=== PATIENT | female | born 1995 | race Caucasian/White ===

== ENCOUNTER 2017-02-28 22:27 | Emergency (ER) | payer MEDICAID, OTHER ==
--- NOTE | 2017-02-28 22:38 | ED Physician Documentation ---
PD HPI URI - Stated complaint Stated Complaint: SORE THROAT - History obtained from History obtained from: Patient - History of Present Illness Timing - onset: How many days ago (5) Timing duration: Days (5) Timing details: Gradual onset, Still present Associated symptoms: Fever, Chills, Sore throat, Swollen nodes, Productive cough (she feels it is more spitting up from the throat and not coughing from bronchial, but getting yellow/green with touches of blood.). 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: None Psych: Depression Musculoskeletal: None Derm: None - Past Surgical History Past Surgical History: No - Present Medications Home Medications: Ambulatory Orders Medication Instructions Recorded Confirmed Cephalexin [Keflex] 500 mg PO QID #24 capsule 02/28/17 Dexamethasone [Decadron] 4 mg PO DAILY #5 tablet 02/28/17 Naproxen 375 mg PO BID #15 tablet 02/28/17 - Allergies Allergies/Adverse Reactions: Allergies Allergy/AdvReac Type Severity Reaction Status Date / Time No Known Drug Allergies Allergy Verified 02/28/17 22:38 - Social History Does the pt smoke?: No Smoking Status: Never smoker Does the pt drink ETOH?: No Does the pt have substance abuse?: No - Immunizations Immunizations are current?: Yes - POLST Patient has POLST: No PD ED PE NORMAL - Vitals Vital signs reviewed: Yes - General General: Alert and oriented X 3, Well developed/nourished, Other (appears uncomfortable with swallowing. ) - HEENT HEENT: No: Pharynx benign (tonsils enlarged with redness and spotty exudate; no peritonsillar swelling nor uvular deviation. ) - Neck Neck: Supple, no meningeal sign, Other (anterior adenopathy noted both sides, tender. ) - Cardiac Cardiac: RRR, No murmur - Respiratory Respiratory: Clear bilaterally - Abdomen Abdomen: Soft, Non tender, No organomegaly Results - Vitals Vitals: Oxygen O2 Source Room air - Labs Labs: Microbiology 02/28/17 22:58 Group A Strep Throat Culture - Final Throat MIXED OROPHARYNGEAL CLOTILDE PRESENT. NO BETA STREP PRESENT IN CULTURE. Laboratory Tests 02/28/17 22:58 Group A Strep Rapid Negative PD MEDICAL DECISION MAKING - ED course Complexity details: considered differential (high clinical suspicion for bacterial so will empirically treat pending culture results. ), d/w patient Departure - Departure Disposition: Home, Self Care Clinical Impression: Acute pharyngitis Qualifiers: Pharyngitis/tonsillitis etiology: unspecified etiology Qualified Code(s): J02.9 - Acute pharyngitis, unspecified Condition: Stable Record reviewed to determine appropriate education?: Yes Instructions: ED Strep Pharyngitis Poss Prescriptions: Cephalexin [Keflex] 500 mg PO QID #24 capsule Dexamethasone [Decadron] 4 mg PO DAILY #5 tablet Naproxen 375 mg PO BID #15 tablet Comments: Drink lots of fluids. Off work tomorrow. Cephalexin 4 times a day for likely strep infection. The culture will result in 2-3 days. Decadron steroid daily for the next several days. Add Tylenol or naproxen as needed for pains. Short- term you can use the hydrocodone prescription we gave you from here. Recheck if not improved over the next several days. Forms: Activity restrictions Discharge Date/Time: 02/28/17 23:43
[2017-02-28] MEDS ORDERED: cephALEXin 250 MG CAPSULE PO STA (22:54)
[2017-02-28] MEDS ORDERED: HYDROcod/ACET 5/325 Prepack 6 PO STA (22:54)
[2017-02-28] MEDS ORDERED: DEXAMETHASONE 10 MG/ML VIAL PO STA (22:54)
[2017-02-28] MEDS ORDERED: ACETAMINOPHEN 325 MG TABLET PO STA (22:54)
[2017-02-28 23:49] VITALS: BP 104/70
== END 2017-02-28 23:43 | disposition home or self-care (01) ==
LOC: ED 22:27
DX: J02.9 Acute pharyngitis, unspecified (principal)
CPT/HCPCS: 87070; 87430; 99283; A9270

== ENCOUNTER 2017-04-21 17:36 | Emergency (ER) | payer MEDICAID ==
[2017-04-21 17:48] VITALS: BP 115/61
--- NOTE | 2017-04-21 17:58 | ED Physician Documentation ---
PD HPI URI - Stated complaint Stated Complaint: CHILLS/SOA/COUGH/SORE THROAT - Chief complaint Chief Complaint: Heent - History obtained from History obtained from: Patient - History of Present Illness Timing - onset: Other (Mild cough for a month which became much worse associated with chills and shortness of breath 2 days ago. Mild sore throat. No measured fevers.) Review of Systems Constitutional: reports: Fatigue. 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 HEENT: None Psych: Depression Musculoskeletal: None Derm: None - Past Surgical History Past Surgical History: No - Present Medications Home Medications: Ambulatory Orders Medication Instructions Recorded Confirmed Azithromycin [Zithromax] 250 mg PO DAILY #4 tablet 04/21/17 guaiFENesin/CODEINE [Robitussin AC] 5 - 10 ml PO Q6H PRN #120 ml 04/21/17 - Allergies Allergies/Adverse Reactions: Allergies Allergy/AdvReac Type Severity Reaction Status Date / Time No Known Drug Allergies Allergy Verified 02/28/17 22:38 - Social History Does the pt smoke?: No Smoking Status: Never smoker Does the pt drink ETOH?: No Does the pt have substance abuse?: No - Immunizations Immunizations are current?: Yes - POLST Patient has POLST: No PD ED PE NORMAL - Vitals Vital signs reviewed: Yes - General General: Alert and oriented X 3, No acute distress - HEENT HEENT: Pharynx benign - Neck Neck: Supple, no meningeal sign, No bony TTP - Cardiac Cardiac: RRR, No murmur - Respiratory Respiratory: No respiratory distress, Other (Diminished R base) - Abdomen Abdomen: Non tender - Derm Derm: Normal color, Warm and dry - Neuro Neuro: Alert and oriented X 3, Normal speech - Psych Psych: Normal mood Results - Vitals Vitals: Vital Signs - 24 hr 04/21/17 17:46 Temperature 37.3 C Heart Rate 88 Respiratory 20 Rate Blood Pressure 115/61 O2 Saturation 99 Oxygen O2 Source Room air - Rads (name of study) 2v chest Radiology: EMP read contemporaneously (RUL pNA) Departure - Departure Disposition: 01 Home, Self Care Clinical Impression: Pneumonia Qualifiers: Pneumonia type: due to unspecified organism Laterality: right Lung location: upper lobe of lung Qualified Code(s): J18.1 - Lobar pneumonia, unspecified organism Condition: Good Record reviewed to determine appropriate education?: Yes Instructions: Pneumonia Dc Prescriptions: Azithromycin [Zithromax] 250 mg PO DAILY #4 tablet guaiFENesin/CODEINE [Robitussin AC] 5 - 10 ml PO Q6H PRN #120 ml PRN Reason: Cough Comments: Call your doctor to arrange a follow-up appointment, make the next available appointment. In the interim, return anytime if worse or if new symptoms develop. Forms: Activity restrictions
--- NOTE | 2017-04-21 18:37 | XRAY Report ---
EXAM: CHEST RADIOGRAPHY EXAM DATE: 04/21/2017 06:16 PM. CLINICAL HISTORY: Cough. COMPARISON: None. TECHNIQUE: 2 views. FINDINGS: Lungs/Pleura: Focal consolidation in the right upper lobe silhouetting the fissure. The lungs are oth erwise clear. No pleural effusion. No pneumothorax. Mediastinum: Heart and mediastinal contours are unremarkable. Other: None. IMPRESSION: Findings most suggestive of right upper lobe pneumonia. [facility] Referring Provider Line: [phone] SITE ID: [id number]
--- NOTE | 2017-04-21 18:37 | XRAY Preliminary Report ---
Exam: XR CHEST 2 VIEW X-RAY IMPRESSION: Findings most suggestive of right upper lobe pneumonia. [facility] SITE ID: [id number]
[2017-04-21] MEDS ORDERED: AZITHROMYCIN 250 MG TABLET PO STA (18:42)
== END 2017-04-21 18:51 | disposition home or self-care (01) ==
LOC: ED 17:36
DX: J18.1 Lobar pneumonia, unspecified organism (principal)
CPT/HCPCS: 71046; 99283; 99284; A9270

== ENCOUNTER 2017-04-25 15:23 | Emergency (ER) | payer MEDICAID ==
[2017-04-25 15:39] VITALS: BP 106/52
[2017-04-25] MEDS ORDERED: ALBUTEROL NEB 2.5 MG/3 ML INH STA (16:31)
--- NOTE | 2017-04-25 16:39 | ED Physician Documentation ---
History of Present Illness - Stated complaint Stated Complaint: SOA,WHEEZING,COUGH,CHEST/LUNG PX - Chief complaint Chief Complaint: Resp - History obtained from History obtained from: Patient - History of Present Illness Timing: How many weeks ago (1) Pain level max: 0 Pain level now: 0 - Additonal information Additional information: Patient is a 22-year-old female who presents to the emergency department with what appear to be upper respiratory infection symptoms for the past week and a half. Was seen here a few days ago and diagnosed with right upper lobe pneumonia on chest x-ray. She states that she has now finished antibiotics, but is still not feeling well. Tried returning to work, but was very fatigued. She is concerned that the pneumonia may be worsening and that she may need more antibiotics. Patient is not , breast-feeding or trying to become . Symptoms are better with rest and worse with exertion. No recent fevers. 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 Psych: Depression Musculoskeletal: None Derm: None - Past Surgical History Past Surgical History: No - Present Medications Home Medications: Ambulatory Orders Medication Instructions Recorded Confirmed Azithromycin [Zithromax] 250 mg PO DAILY #4 tablet 04/21/17 guaiFENesin/CODEINE [Robitussin AC] 5 - 10 ml PO Q6H PRN #120 ml 04/21/17 Albuterol Sulf [Ventolin Hfa 1 - 2 puffs INH Q4HR PRN #1 inhaler 04/25/17 Inhaler] Doxycycline Monohydrate 100 mg PO BID #20 tablet 04/25/17 - Allergies Allergies/Adverse Reactions: Allergies Allergy/AdvReac Type Severity Reaction Status Date / Time No Known Drug Allergies Allergy Verified 04/25/17 15:39 - Social History Does the pt smoke?: No Smoking Status: Never smoker Does the pt drink ETOH?: No Does the pt have substance abuse?: No - Immunizations Immunizations are current?: Yes - POLST Patient has POLST: No PD ED PE NORMAL - Vitals Vital signs reviewed: Yes - General General: Alert and oriented X 3, No acute distress, Well developed/nourished - HEENT HEENT: PERRL, Ears normal, Moist mucous membranes, Pharynx benign - Neck Neck: Supple, no meningeal sign - Cardiac Cardiac: RRR, Strong equal pulses - Respiratory Respiratory: No respiratory distress, Other (Diminished breath sounds bilaterally) - Abdomen Abdomen: Soft, Non tender, Non distended - Derm Derm: Warm and dry, No rash - Extremities Extremities: No edema - Neuro Neuro: Alert and oriented X 3 - Psych Psych: Normal mood, Normal affect Results - Vitals Vitals: Vital Signs - 24 hr 04/25/17 04/25/17 15:37 16:47 Temperature 36.5 C Heart Rate 59 L 84 Respiratory 16 18 Rate Blood Pressure 106/52 L O2 Saturation 99 Oxygen O2 Source Room air - Rads (name of study) Chest x-ray Radiology: Prelim report reviewed, EMP read contemporaneously, See rad report ( Right upper lobe patchy density has decreased in size since 04/21/2017 consistent with resolving pneumonia. ) PD MEDICAL DECISION MAKING - ED course Complexity details: reviewed results, re-evaluated patient, considered differential, d/w patient, d/w family ED course: Patient is a 22-year-old female who presents to the emergency department with what appears to be resolving pneumonia. She feels better after nebulizer treatment and lungs are clear to auscultation bilaterally with increased aeration. Will prescribe an albuterol inhaler for home. We will also extend her antibiotic course as she still has pneumonia on chest x-ray and is still not feeling well. Will have her follow-up with her PCP for repeat evaluation in a few days. Patient counseled regarding signs and symptoms for which I believe and urgent re-evaluation would be necessary. Patient with good understanding of and agreement to plan and is comfortable going home at this time This document was made in part using voice recognition software. While efforts are made to proofread this document, sound alike and grammatical errors may occur. Departure - Departure Disposition: 01 Home, Self Care Clinical Impression: Pneumonia Qualifiers: Pneumonia type: due to unspecified organism Laterality: right Lung location: upper lobe of lung Qualified Code(s): J18.1 - Lobar pneumonia, unspecified organism Condition: Good Instructions: ED Pneumonia Adult Follow-Up: your,doctor in 1 week [Other] Prescriptions: Albuterol Sulf [Ventolin Hfa Inhaler] 1 - 2 puffs INH Q4HR PRN #1 inhaler PRN Reason: Shortness Of Air/Wheezing Doxycycline Monohydrate 100 mg PO BID #20 tablet Comments: Take all antibiotics until gone. Return if you worsen. This should continue to improve. Forms: Activity restrictions Discharge Date/Time: 04/25/17 17:32
--- NOTE | 2017-04-25 17:19 | XRAY Preliminary Report ---
Exam: XR CHEST 2 VIEW X-RAY IMPRESSION: Right upper lobe patchy density has decreased in size since 04/21/2017 consistent with re solving pneumonia. [facility] SITE ID: [id number]
--- NOTE | 2017-04-25 17:20 | XRAY Report ---
EXAM: CHEST RADIOGRAPHY EXAM DATE: 04/25/2017 05:14 PM. CLINICAL HISTORY: Cough, recent pneumonia. COMPARISON: 04/21/2017. TECHNIQUE: 2 views. FINDINGS: Lungs/Pleura: There is a mild patchy right upper lobe density. This density has decreased since prior exam. The left lung is clear. No pleural effusion or pneumothorax. Mediastinum: Heart and mediastinal contours are unremarkable. Other: None. IMPRESSION: Right upper lobe patchy density has decreased in size since 04/21/2017 consistent with re solving pneumonia. [facility] Referring Provider Line: [phone] SITE ID: [id number]
== END 2017-04-25 17:32 | disposition home or self-care (01) ==
LOC: ED 15:23
DX: J18.1 Lobar pneumonia, unspecified organism (principal)
CPT/HCPCS: 71046; 94640; 94664; 99281; 99284

== ENCOUNTER 2017-05-11 11:37 | Emergency (ER) | payer MEDICAID ==
--- NOTE | 2017-05-11 12:42 | ED Physician Documentation ---
PD HPI URI - Stated complaint Stated Complaint: COUGH/EYES WATERING - Chief complaint Chief Complaint: General - History obtained from History obtained from: Patient - History of Present Illness Timing - onset: How many days ago (2-3) Timing duration: Days (2-3) Timing details: Abrupt onset, Still present Associated symptoms: Chills, Nasal congestion, Rhinorrhea, Dry cough, NVD (some nausea with emesis once this morning; no diarrhea.). No: Fever Contributing factors: No: Sick contact, Travel, Immunocompromised Similar symptoms before: Has not had sx before Recently seen: Not recently seen Review of Systems Constitutional: reports: Chills, Myalgias. denies: Fever Nose: reports: Rhinorrhea / runny nose, Congestion, Sinus pressure / pain Throat: reports: Sore throat Respiratory: reports: Cough GI: reports: Nausea, Vomiting (once today). 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: None Psych: Depression Musculoskeletal: None Derm: None - Past Surgical History Past Surgical History: No - Present Medications Home Medications: Ambulatory Orders Medication Instructions Recorded Confirmed Azithromycin [Zithromax] 250 mg PO DAILY #4 tablet 04/21/17 guaiFENesin/CODEINE [Robitussin AC] 5 - 10 ml PO Q6H PRN #120 ml 04/21/17 Albuterol Sulf [Ventolin Hfa 1 - 2 puffs INH Q4HR PRN #1 inhaler 04/25/17 Inhaler] Doxycycline Monohydrate 100 mg PO BID #20 tablet 04/25/17 Benzonatate [Tessalon] 100 mg PO TID PRN #25 capsule 05/11/17 Cetirizine [ZyrTEC] 10 mg PO DAILY #20 tablet 05/11/17 Dexamethasone [Decadron] 4 mg PO DAILY #5 tablet 05/11/17 Fluticasone [Flonase] 1 sprays CHARISSA BID #1 bottle 05/11/17 - Allergies Allergies/Adverse Reactions: Allergies Allergy/AdvReac Type Severity Reaction Status Date / Time No Known Drug Allergies Allergy Verified 04/25/17 15:39 - Social History Does the pt smoke?: No Smoking Status: Never smoker Does the pt drink ETOH?: No Does the pt have substance abuse?: No - Immunizations Immunizations are current?: Yes - POLST Patient has POLST: No PD ED PE NORMAL - Vitals Vital signs reviewed: Yes - General General: Alert and oriented X 3, Well developed/nourished - HEENT HEENT: Ears normal, Pharynx benign - Neck Neck: Supple, no meningeal sign, No adenopathy - Cardiac Cardiac: RRR, No murmur - Respiratory Respiratory: Clear bilaterally - Abdomen Abdomen: Soft, Non tender - Derm Derm: Normal color, Warm and dry, No rash Results - Vitals Vitals: Oxygen O2 Source Room air PD MEDICAL DECISION MAKING - ED course Complexity details: considered differential, d/w patient Departure - Departure Disposition: 01 Home, Self Care Clinical Impression: Acute viral sinusitis Condition: Stable Record reviewed to determine appropriate education?: Yes Instructions: ED Sinusitis No Abx Prescriptions: Benzonatate [Tessalon] 100 mg PO TID PRN #25 capsule PRN Reason: Cough Cetirizine [ZyrTEC] 10 mg PO DAILY #20 tablet Dexamethasone [Decadron] 4 mg PO DAILY #5 tablet Fluticasone [Flonase] 1 sprays CHARISSA BID #1 bottle Comments: Since you are just finishing your antibiotic, would be unlikely that you have a bacterial sinus infection. More likely viral and will treat the irritation and inflammation of it with steroid orally and nasally as well as a antihistamine tablet. He can use Tessalon if needed for the cough and the steroid should help with the cough as well. Recheck if not improving over the next few days. Discharge Date/Time: 05/11/17 13:11
[2017-05-11] MEDS ORDERED: BENZONATATE 100 MG CAPSULE PO STA (12:58)
[2017-05-11] MEDS ORDERED: DEXAMETHASONE 10 MG/ML VIAL PO STA (12:58)
[2017-05-11] MEDS ORDERED: CETIRIZINE 10 MG TABLET PO STA (12:58)
[2017-05-11] MEDS ORDERED: CHERRY SYRUP 10 ML UDC PO ONE (13:15)
[2017-05-11 13:16] VITALS: BP 120/63
== END 2017-05-11 13:11 | disposition home or self-care (01) ==
LOC: ED 11:37
DX: J01.90 Acute sinusitis, unspecified (principal); B97.89 Other viral agents as the cause of diseases classified elsewhere
CPT/HCPCS: 99283; A9270

== ENCOUNTER 2017-05-17 09:26 | Emergency (ER) | payer MEDICAID ==
--- NOTE | 2017-05-17 12:27 | ED Physician Documentation ---
PD HPI URI - Stated complaint Stated Complaint: PAIN WITH BREATHING - Chief complaint Chief Complaint: Resp - History obtained from History obtained from: Patient - History of Present Illness Timing - onset: How many weeks ago (3) Timing duration: Weeks (3 weeks of cough and pain with cough/breathing, still some productive sputum. Has been seen twice with Rx abx, inhaler, steroids, and Tessalon. Still not better though no fevers the past week or so.) Timing details: Gradual onset, Still present Associated symptoms: Nasal congestion, Sore throat, Productive cough, Chest pain. No: Fever, Ear pain, Dyspnea, NVD Contributing factors: No: Sick contact, Travel, Immunocompromised, COPD / asthma Similar symptoms before: Diagnosis (URI and bronchtiis) Recently seen: Emergency Dept (twice in past 3 weeks) Review of Systems Constitutional: reports: Myalgias. denies: Fever Nose: reports: Congestion Throat: reports: Sore throat Cardiac: reports: Chest pain / pressure. denies: Palpitations, Pedal edema, Calf pain Respiratory: reports: Cough. 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 Psych: Depression Musculoskeletal: None Derm: None - Past Surgical History Past Surgical History: No - Present Medications Home Medications: Ambulatory Orders Medication Instructions Recorded Confirmed Azithromycin [Zithromax] 250 mg PO DAILY #4 tablet 04/21/17 guaiFENesin/CODEINE [Robitussin AC] 5 - 10 ml PO Q6H PRN #120 ml 04/21/17 Albuterol Sulf [Ventolin Hfa 1 - 2 puffs INH Q4HR PRN #1 inhaler 04/25/17 Inhaler] Doxycycline Monohydrate 100 mg PO BID #20 tablet 04/25/17 Benzonatate [Tessalon] 100 mg PO TID PRN #25 capsule 05/11/17 Cetirizine [ZyrTEC] 10 mg PO DAILY #20 tablet 05/11/17 Dexamethasone [Decadron] 4 mg PO DAILY #5 tablet 05/11/17 Fluticasone [Flonase] 1 sprays CHARISSA BID #1 bottle 05/11/17 Cephalexin [Keflex] 500 mg PO TID #21 capsule 05/17/17 Dexamethasone [Decadron] 4 mg PO DAILY #7 tablet 05/17/17 Tramadol HCl 50 mg PO Q6H PRN #25 tablet 05/17/17 - Allergies Allergies/Adverse Reactions: Allergies Allergy/AdvReac Type Severity Reaction Status Date / Time No Known Drug Allergies Allergy Verified 04/25/17 15:39 - Social History Does the pt smoke?: No Smoking Status: Never smoker Does the pt drink ETOH?: No Does the pt have substance abuse?: No - Immunizations Immunizations are current?: Yes - POLST Patient has POLST: No PD ED PE NORMAL - Vitals Vital signs reviewed: Yes - General General: Alert and oriented X 3, No acute distress, Well developed/nourished - HEENT HEENT: Ears normal, Moist mucous membranes, Pharynx benign - Neck Neck: Supple, no meningeal sign, No adenopathy - Cardiac Cardiac: RRR, No murmur - Respiratory Respiratory: Clear bilaterally - Abdomen Abdomen: Soft, Non tender - Derm Derm: Normal color, Warm and dry - Extremities Extremities: No tenderness to palpate, Normal ROM s pain, No edema, No calf tenderness / cord - Neuro Neuro: Alert and oriented X 3, No motor deficit, Normal speech Results - Vitals Vitals: Oxygen O2 Source Room air - Rads (name of study) chest Radiology: Prelim report reviewed, EMP read contemporaneously (no acute changes) PD MEDICAL DECISION MAKING - ED course Complexity details: reviewed results, considered differential, d/w patient Departure - Departure Disposition: 01 Home, Self Care Clinical Impression: Persistent cough for 3 weeks or longer, Pleuritic chest pain Condition: Stable Record reviewed to determine appropriate education?: Yes Instructions: ED Upper Resp Infec Abx Tx Follow-Up: [facility] [Provider Group] [facility] [Provider Group] Prescriptions: Cephalexin [Keflex] 500 mg PO TID #21 capsule Dexamethasone [Decadron] 4 mg PO DAILY #7 tablet Tramadol HCl 50 mg PO Q6H PRN #25 tablet PRN Reason: Pain Comments: Your chest x-ray appears good. Presumably the residual infection is still causing the cough and some inflammation around the lung. Continue the Decadron steroid for another 5-7 days. Will try a different antibiotic cephalexin 3 times a day for a week. Continue the Tessalon if needed for cough. Add tramadol if needed for pain. Recheck if still not better in the next week or so. Discharge Date/Time: 05/17/17 13:24
[2017-05-17] MEDS ORDERED: cephALEXin 250 MG CAPSULE PO STA (12:41)
[2017-05-17] MEDS ORDERED: HYDROcod/ACETAM 5/325 MG TABLET PO STA (12:41)
--- NOTE | 2017-05-17 13:13 | XRAY Report ---
EXAM: CHEST RADIOGRAPHY EXAM DATE: 05/17/2017 01:02 PM. CLINICAL HISTORY: Cough and right chest pain for weeks. COMPARISON: None. TECHNIQUE: 2 views. FINDINGS: Lungs/Pleura: No focal opacities evident. No pleural effusion. No pneumothorax. Normal volumes. Mediastinum: Heart and mediastinal contours are unremarkable. Other: None. IMPRESSION: Negative chest. [facility] Referring Provider Line: [phone] SITE ID: [id number]
[2017-05-17 13:25] VITALS: BP 122/65
== END 2017-05-17 13:24 | disposition home or self-care (01) ==
LOC: ED 09:26
DX: R05 Cough (principal); R07.81 Pleurodynia
CPT/HCPCS: 71046; 99283; A9270

== ENCOUNTER 2017-09-05 04:01 | Emergency (ER) | payer MEDICAID ==
--- NOTE | 2017-09-05 04:34 | ED Physician Documentation ---
PD HPI SKIN - Stated complaint Stated Complaint: L FOOT PAIN - Chief complaint Chief Complaint: Wound - History obtained from History obtained from: Patient - History of Present Illness Timing - onset: How many days ago (2-3) Timing - duration: Days Timing - details: Gradual onset Pain level now: 3 Location: LLE Quality / character: Itchy, Burning, Discolored, Raised Associated symptoms: No: Fever, Joint pain Contributing factors: Unknown Recently seen: Not recently seen - Additional information Additional information: patient complains of 2 to 3 days of redness and itching, burning discomfort on her left lower extremity. She believes this is due to a spider bite, although she did not see a spider nor have a sudden onset of her symptoms. 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 09/05/17 Sulfamethox/Trimeth 800/160 1 each PO BID #14 tablet 09/05/17 [Bactrim Ds 800/160] - Allergies Allergies/Adverse Reactions: Allergies Allergy/AdvReac Type Severity Reaction Status Date / Time No Known Drug Allergies Allergy Verified 09/05/17 04:07 - Social History Does the pt smoke?: No Smoking Status: Never smoker Does the pt drink ETOH?: No Does the pt have substance abuse?: No - Immunizations Immunizations are current?: Yes - POLST Patient has POLST: No PD ED PE NORMAL - Vitals Vital signs reviewed: Yes - General General: Alert and oriented X 3, No acute distress, Well developed/nourished - Extremities Extremities: No edema PD ED PE EXPANDED - Extremities Extremities: Other (1cm diameter confluent erythema with central clear vesicle. no fluctuance or discharge, mild tenderness) Results - Vitals Vitals: Vital Signs - 24 hr 09/05/17 09/05/17 04:06 04:57 Temperature 36.6 C Heart Rate 79 72 Respiratory 18 16 Rate Blood Pressure 129/64 125/74 O2 Saturation 100 99 Oxygen O2 Source Room air PD MEDICAL DECISION MAKING - ED course Complexity details: considered differential, d/w patient - Sepsis Event Vital Signs: Vital Signs - 24 hr 09/05/17 09/05/17 04:06 04:57 Temperature 36.6 C Heart Rate 79 72 Respiratory 18 16 Rate Blood Pressure 129/64 125/74 O2 Saturation 100 99 Oxygen O2 Source Room air Departure - Departure Disposition: 01 Home, Self Care Clinical Impression: Cellulitis Qualifiers: Site of cellulitis: extremity Site of cellulitis of extremity: lower extremity Laterality: left Qualified Code(s): L03.116 - Cellulitis of left lower limb Condition: Good Instructions: ED Infec Skin Cellulitis Prescriptions: Mupirocin Calcium [Bactroban] 1 film TP TID #1 cream..g. Sulfamethox/Trimeth 800/160 [Bactrim Ds 800/160] 1 each PO BID #14 tablet Comments: The infection looks small enough that the topical antibiotic (mupirocin) should work. Use it three times per day for 1 week. However, if the area is getting worse (larger area affected, increased swelling, increased pain), then take the oral antibiotic as prescribed (but continue the topical antibiotic, as well). Discharge Date/Time: 09/05/17 04:57
[2017-09-05] MEDS ORDERED: MUPIROCIN 2% OINT 1 GM TOP STA (04:44)
[2017-09-05 04:57] VITALS: BP 125/74
== END 2017-09-05 04:57 | disposition home or self-care (01) ==
LOC: ED 04:01
DX: L03.116 Cellulitis of left lower limb (principal)
CPT/HCPCS: 99283; A9270

== ENCOUNTER 2017-10-01 18:36 | Emergency (ER) | payer MEDICAID ==
[2017-10-01] MEDS ORDERED: NAPROXEN 250 MG TABLET PO STA (21:26)
--- NOTE | 2017-10-01 22:05 | XRAY Report ---
Reason: pain Procedure Date: 10/01/2017 Accession Number: [id number] / [id number] Procedure: XR - Foot 3 View RT CPT Code: FULL RESULT: EXAM: RIGHT FOOT RADIOGRAPHY EXAM DATE: 10/01/2017 09:53 PM. CLINICAL HISTORY: Pain at the first metatarsophalangeal joint COMPARISON: None. TECHNIQUE: 3 views. FINDINGS: Bones: Normal. No fractures or bone lesions. 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 Soft Tissues: Normal. No soft tissue swelling. IMPRESSION: Mild degenerative changes. No evidence of fracture. RADIA
--- NOTE | 2017-10-01 22:26 | ED Physician Documentation ---
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 09/05/17 Sulfamethox/Trimeth 800/160 1 each PO BID #14 tablet 09/05/17 [Bactrim Ds 800/160] Naproxen [Naprosyn] 500 mg PO BID PRN 30 Days #30 10/01/17 tablet - Allergies Allergies/Adverse Reactions: Allergies Allergy/AdvReac Type Severity Reaction Status Date / Time No Known Drug Allergies Allergy Verified 10/01/17 18:44 - Social History Does the pt smoke?: No Smoking Status: Never smoker Does the pt drink ETOH?: No Does the pt have substance abuse?: Yes Substance Use and Type: Marijuana - Immunizations Immunizations are current?: No Immunizations: Other immun current - POLST Patient has POLST: No Results - Vitals Vitals: Vital Signs - 24 hr 10/01/17 18:41 Temperature 36.7 C Heart Rate 88 Respiratory 18 Rate Blood Pressure 108/65 O2 Saturation 96 Oxygen O2 Source Room air PD MEDICAL DECISION MAKING - Sepsis Event Vital Signs: Vital Signs - 24 hr 10/01/17 18:41 Temperature 36.7 C Heart Rate 88 Respiratory 18 Rate Blood Pressure 108/65 O2 Saturation 96 Oxygen O2 Source Room air Departure - Departure Disposition: 01 Home, Self Care Clinical Impression: Foot pain Qualifiers: Laterality: unspecified laterality Qualified Code(s): M79.673 - Pain in unspecified foot Condition: Good Follow-Up: [facility] [Provider Group] - Within 1 week Prescriptions: Naproxen [Naprosyn] 500 mg PO BID PRN 30 Days #30 tablet PRN Reason: Pain Comments: Please follow-up with primary care for ongoing management. Please return to the emergency department for worsening symptoms or any concerns Forms: Activity restrictions
[2017-10-01 22:34] VITALS: BP 108/63
--- NOTE | 2017-10-01 22:36 | ED Physician Documentation ---
History of Present Illness - Stated complaint Stated Complaint: RT FOOT/LOW BACK PX - Chief complaint Chief Complaint: Ext Problem - Additonal information Additional information: 22-year-old female presents the emergency department with chronic foot pain from a bunion for the past several years. The patient reports ongoing pain. The patient has not attempted any [id number] management. No new injuries. No fevers, chills or swelling or calf pain. Review of Systems Constitutional: denies: Fever, Chills Cardiac: denies: Chest pain / pressure Respiratory: denies: Cough Musculoskeletal: reports: Extremity pain. 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 09/05/17 Sulfamethox/Trimeth 800/160 1 each PO BID #14 tablet 09/05/17 [Bactrim Ds 800/160] Naproxen [Naprosyn] 500 mg PO BID PRN 30 Days #30 10/01/17 tablet - Allergies Allergies/Adverse Reactions: Allergies Allergy/AdvReac Type Severity Reaction Status Date / Time No Known Drug Allergies Allergy Verified 10/01/17 18:44 - Social History Does the pt smoke?: No Smoking Status: Never smoker Does the pt drink ETOH?: No Does the pt have substance abuse?: Yes Substance Use and Type: Marijuana - Immunizations Immunizations are current?: No Immunizations: Other immun current - POLST Patient has POLST: No PD ED PE NORMAL - General General: Alert and oriented X 3, No acute distress - HEENT HEENT: Atraumatic, PERRL, EOMI, Ears normal - Respiratory Respiratory: No respiratory distress - Derm Derm: Normal color, Warm and dry - Extremities Extremities: Other (The patient has full active range of motion of the hips, knees, ankles and feet. There is no obvious deformity to the right foot. The year is no swelling of the foot. The patient has a normal pulse and brisk cap refill. There is no evidence of acute infectious etiology, vascular etiology) Results - Vitals Vitals: Vital Signs - 24 hr 10/01/17 18:41 Temperature 36.7 C Heart Rate 88 Respiratory 18 Rate Blood Pressure 108/65 O2 Saturation 96 Oxygen O2 Source Room air - Rads (name of study) X-ray foot Radiology: Final report received PD MEDICAL DECISION MAKING - ED course ED course: I discussed the findings with the patient, I advised follow-up with primary care for ongoing management. The patient understands and agrees. I discussed warning signs and recommended returning to the emergency department for worsening or any concerns. - Sepsis Event Vital Signs: Vital Signs - 24 hr 10/01/17 18:41 Temperature 36.7 C Heart Rate 88 Respiratory 18 Rate Blood Pressure 108/65 O2 Saturation 96 Oxygen O2 Source Room air Departure - Departure Disposition: 01 Home, Self Care Clinical Impression: Foot pain Qualifiers: Laterality: unspecified laterality Qualified Code(s): M79.673 - Pain in unspecified foot Condition: Good Follow-Up: [facility] [Provider Group] - Within 1 week Prescriptions: Naproxen [Naprosyn] 500 mg PO BID PRN 30 Days #30 tablet PRN Reason: Pain Comments: Please follow-up with primary care for ongoing management. Please return to the emergency department for worsening symptoms or any concerns Forms: Activity restrictions
== END 2017-10-01 22:35 | disposition home or self-care (01) ==
LOC: ED 18:36
DX: M79.671 Pain in right foot (principal)
CPT/HCPCS: 73630; 99283; A9270

== ENCOUNTER 2017-11-23 13:51 | Emergency (ER) | payer MEDICAID ==
[2017-11-23 14:08] VITALS: BP 136/82
--- NOTE | 2017-11-23 14:32 | XRAY Report ---
Reason: injury Procedure Date: 11/23/2017 Accession Number: [id number] / [id number] Procedure: XR - Hand 3 View RT CPT Code: FULL RESULT: EXAM: RIGHT HAND RADIOGRAPHY EXAM DATE: 11/23/2017 02:16 PM. CLINICAL HISTORY: Injury. Persistent third and fifth digit pain COMPARISON: None. TECHNIQUE: 3 views. FINDINGS: Bones: No fractures or bone lesions. Joints: No subluxations. Soft Tissues: No soft tissue swelling. IMPRESSION: Negative 3 view right hand radiography. RADIA
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
== END 2017-11-23 14:42 | disposition home or self-care (01) ==
LOC: ED 13:51
DX: S60.221A Contusion of right hand, initial encounter (principal); W22.09XA Striking against other stationary object, initial encounter
CPT/HCPCS: 99282

== ENCOUNTER 2018-02-11 17:52 | Emergency (ER) | payer MEDICAID ==
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
[2018-02-11 18:10] VITALS: BP 139/78
== END 2018-02-11 18:58 | disposition home or self-care (01) ==
LOC: ED 17:52
DX: J06.9 Acute upper respiratory infection, unspecified (principal); R03.0 Elevated blood-pressure reading, without diagnosis of hypertension
CPT/HCPCS: 87070; 87275; 87276; 87430; 99283

== ENCOUNTER 2018-05-05 18:48 | Outpatient (CLI) | payer MEDICAID | END 2018-05-05 18:49 | disposition critical access hospital (66) | LOC: EMS 18:48 | PROVIDERS: ATTEND Surgery | DX: R11.2 Nausea with vomiting, unspecified (principal); R10.9 Unspecified abdominal pain; R19.7 Diarrhea, unspecified; R50.9 Fever, unspecified | CPT/HCPCS: A0425; A0427; A0999 ==

== ENCOUNTER 2018-05-05 19:12 | Emergency (ER) | payer MEDICAID ==
[2018-05-05 19:31] LABS: BILIRUBIN,URINE NEGATIVE (NEGATIVE); GLUCOSE, URINE (UA) NEGATIVE (NEGATIVE); KETONES,URINE (UA) >=80 mg/dL (NEGATIVE); LEUKOCYTE ESTERASE, URINE NEGATIVE (NEGATIVE); NITRITE,URINE NEGATIVE (NEGATIVE); OCCULT BLOOD,URINE NEGATIVE (NEGATIVE); PH,URINE 5.5 PH (5.0-7.5); PROTEIN,URINE NEGATIVE (NEGATIVE); UROBILINOGEN,URINE 0.2 (NORMAL) E.U./dL (NORMAL)
[2018-05-05 19:32] LABS: CLARITY,URINE CLEAR (CLEAR)
[2018-05-05 19:33] LABS: HCG UR QUAL NEGATIVE
[2018-05-05] MEDS ORDERED: SODIUM CHLORIDE 0.9% 1,000 ML IV ONE (20:01)
[2018-05-05] MEDS ORDERED: DICYCLOMINE 10 MG CAPSULE PO STA (20:02)
[2018-05-05] MEDS ORDERED: LOPERAMIDE 2 MG CAPSULE PO STA ×2 (20:02→21:00)
[2018-05-05] MEDS ORDERED: LACTATED RINGERS 1,000 ML IV STA (20:02)
[2018-05-05] MEDS ORDERED: METOCLOPRAMIDE 10 MG/2 ML VIAL IVP STA (20:02)
--- NOTE | 2018-05-05 20:03 | ED Physician Documentation ---
PD HPI NVD - Stated complaint Stated Complaint: N/V/D - Chief complaint Chief Complaint: Abd Pain - History obtained from History obtained from: Patient - History of Present Illness Timing - onset: Today (Previously healthy 23-year-old woman who became acutely nauseous today at 11 AM followed by vomiting and diarrhea, stomach cramps. She has chills but no fevers. No sick contacts or recent travel.) Review of Systems Constitutional: reports: Chills, Sweats. 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 09/05/17 Sulfamethox/Trimeth 800/160 1 each PO BID #14 tablet 09/05/17 [Bactrim Ds 800/160] RX: Naproxen [Naprosyn] 500 mg PO BID PRN 30 Days #30 10/01/17 tablet Guaifenesin/Pseudoephedrne HCl 1 each PO BID PRN #20 tab.er.12h 02/11/18 [Mucinex D ER 600-60 mg Tablet] Ibuprofen [Motrin] 800 mg PO Q8H PRN #30 tablet 02/11/18 Ondansetron Odt [Zofran] 4 mg TL Q6H PRN #10 tablet 05/05/18 - Allergies Allergies/Adverse Reactions: Allergies Allergy/AdvReac Type Severity Reaction Status Date / Time Penicillins Allergy Anaphylaxis Verified 05/05/18 19:15 cyclobenzaprine AdvReac Emesis Verified 05/05/18 19:15 [From Flexeril] hydrocodone [From Vicodin] AdvReac Emesis Verified 05/05/18 19:15 - Social History Does the pt smoke?: No Smoking Status: Never smoker Does the pt drink ETOH?: No Does the pt have substance abuse?: Yes - Immunizations Immunizations are current?: No Immunizations: Other immun current - POLST Patient has POLST: No PD ED PE NORMAL - Vitals Vital signs reviewed: Yes - General General: Alert and oriented X 3, No acute distress - HEENT HEENT: PERRL, Pharynx benign - Neck Neck: Supple, no meningeal sign, No bony TTP - Cardiac Cardiac: Other (Mild tachycardia) - Respiratory Respiratory: No respiratory distress, Clear bilaterally - Abdomen Abdomen: Normal bowel sounds, Soft, Non tender - Back Back: No CVA TTP, No spinal TTP - Derm Derm: Normal color, Warm and dry - Extremities Extremities: No edema, No calf tenderness / cord - Neuro Neuro: Alert and oriented X 3, Normal speech Results - Vitals Vitals: Vital Signs - 24 hr 05/05/18 05/05/18 05/05/18 19:15 19:20 21:22 Temperature 37.1 C 37.1 C 36.8 C Heart Rate 110 H 110 H 98 Respiratory 18 16 16 Rate Blood Pressure 103/62 103/62 106/64 O2 Saturation 100 100 100 Oxygen O2 Source Room air - Labs Labs: Laboratory Tests 05/05/18 05/05/18 19:27 20:16 Sodium 137 Potassium 3.9 Chloride 106 Carbon Dioxide 22 Anion Gap 9.0 BUN 11 Creatinine 0.6 Estimated GFR (MDRD) 124 Glucose 100 Calcium 8.3 L Total Bilirubin 1.3 H AST 18 ALT 16 Alkaline Phosphatase 40 L Total Protein 6.9 Albumin 4.1 Globulin 2.8 Albumin/Globulin Ratio 1.5 Lipase 25 Urine Color YELLOW Urine Clarity CLEAR Urine pH 5.5 Ur Specific [place] >=1.030 H Urine Protein NEGATIVE Urine Glucose (UA) NEGATIVE Urine Ketones >=80 H Urine Occult Blood NEGATIVE Urine Nitrite NEGATIVE Urine Bilirubin NEGATIVE Urine Urobilinogen 0.2 (NORMAL) Ur Leukocyte Esterase NEGATIVE Ur Microscopic Review NOT INDICATED Urine Culture Comments NOT INDICATED Urine HCG, Qual NEGATIVE PD MEDICAL DECISION MAKING - ED course ED course: 23-year-old woman with clinical syndrome very consistent with gastroenteritis. She is nontender. She took oral fluids well after the administration of Zofran and Reglan here and requested discharge. Departure - Departure Disposition: 01 Home, Self Care Clinical Impression: Gastroenteritis Condition: Good Record reviewed to determine appropriate education?: Yes Instructions: ED Gastroenteritis Viral Prescriptions: Ondansetron Odt [Zofran] 4 mg TL Q6H PRN #10 tablet PRN Reason: Nausea / Vomiting Comments: Return in 24 hours if not better, anytime if worse or new symptoms develop especially high fever Or pain in the right bottom of your abdomen. Forms: Activity restrictions Discharge Date/Time: 05/05/18 21:22
[2018-05-05 20:37] LABS: ALBUMIN 4.1 g/dL (3.2-5.5); ALBUMIN/GLOBULIN RATIO 1.5 (1.0-2.2); BILIRUBIN,TOTAL 1.3 mg/dL (0.2-1.0); CALCIUM 8.3 mg/dL (8.5-10.3); CREATININE 0.6 mg/dL (0.4-1.0); TOTAL PROTEIN 6.9 g/dL (6.7-8.2)
[2018-05-05] MEDS ORDERED: ONDANSETRON ODT 4 MG Prepack 2 TL PRN (21:00)
[2018-05-05 21:23] VITALS: BP 106/64
== END 2018-05-05 21:22 | disposition home or self-care (01) ==
LOC: EDUNIT# → ED 19:12
DX: K52.9 Noninfective gastroenteritis and colitis, unspecified (principal)
CPT/HCPCS: 36415; 80053; 81003; 81025; 83690; 96374; 99283; A9270; J2765; J7120; 81001; 87086

== ENCOUNTER 2018-11-27 11:35 | Emergency (ER) | payer MEDICAID ==
[2018-11-27 11:42] VITALS: BP 119/69
[2018-11-27] MEDS ORDERED: CHERRY SYRUP 10 ML UDC PO ONE (12:19)
[2018-11-27] MEDS ORDERED: DEXAMETHASONE 10 MG/ML VIAL PO STA (12:19)
[2018-11-27] MEDS ORDERED: ONDANSETRON ODT 4 MG TABLET TL STA (12:19)
--- NOTE | 2018-11-27 12:21 | ED Physician Documentation ---
PD HPI HEENT - Stated complaint Stated Complaint: SORE THROAT - Chief complaint Chief Complaint: Heent - History obtained from History obtained from: Patient - History of Present Illness Timing - onset: Yesterday (Sore throat since yesterday without runny nose or cough. She is had chills but no measured fevers. She vomited once but it is not clear if it was from trying to take DayQuil and a cough drop or from the illness itself. No possibility of .) Review of Systems Constitutional: reports: Chills, Fatigue. 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 HEENT: None Psych: Depression, Anxiety, ADD/ADHD Musculoskeletal: None Derm: None - Past Surgical History Past Surgical History: No - Present Medications Home Medications: Ambulatory Orders Medication Instructions Recorded Confirmed Ibuprofen [Motrin] 800 mg PO Q8H PRN #30 tablet 11/27/18 Ondansetron Odt [Zofran] 4 mg TL Q6H PRN #10 tablet 11/27/18 - Allergies Allergies/Adverse Reactions: Allergies Allergy/AdvReac Type Severity Reaction Status Date / Time Penicillins Allergy Anaphylaxis Verified 05/05/18 19:15 cyclobenzaprine AdvReac Emesis Verified 05/05/18 19:15 [From Flexeril] hydrocodone [From Vicodin] AdvReac Emesis Verified 11/27/18 11:42 - Social History Does the pt smoke?: No Smoking Status: Never smoker Does the pt drink ETOH?: No Does the pt have substance abuse?: Yes - Immunizations Immunizations are current?: No Immunizations: Other immun current - POLST Patient has POLST: No PD ED PE NORMAL - Vitals Vital signs reviewed: Yes - General General: Alert and oriented X 3, No acute distress - HEENT HEENT: Ears normal, Pharynx benign - Neck Neck: Supple, no meningeal sign - Cardiac Cardiac: RRR, No murmur - Respiratory Respiratory: No respiratory distress, Clear bilaterally - Abdomen Abdomen: Non tender - Derm Derm: No rash - Neuro Neuro: Alert and oriented X 3, Normal speech Results - Vitals Vitals: Vital Signs - 24 hr 11/27/18 11:40 Temperature 36.6 C Heart Rate 97 Respiratory 18 Rate Blood Pressure 119/69 O2 Saturation 100 Oxygen O2 Source Room air - Labs Labs: Laboratory Tests 11/27/18 11:45 Group A Strep Rapid Negative Departure - Departure Disposition: Home, Self Care Clinical Impression: Viral pharyngitis Condition: Good Record reviewed to determine appropriate education?: Yes Instructions: ED Pharyngitis Viral Report Pending Prescriptions: Ibuprofen [Motrin] 800 mg PO Q8H PRN #30 tablet PRN Reason: PAIN &/OR FEVER Ondansetron Odt [Zofran] 4 mg TL Q6H PRN #10 tablet PRN Reason: Nausea / Vomiting Comments: We will call if your throat culture becomes positive, return for new or worsening symptoms. Forms: Activity restrictions
== END 2018-11-27 12:34 | disposition home or self-care (01) ==
LOC: ED 11:35
DX: J02.8 Acute pharyngitis due to other specified organisms (principal)
CPT/HCPCS: 87070; 87430; 99283; A9270; Q0162

== ENCOUNTER 2019-03-25 20:50 | Emergency (ER) | payer MEDICAID ==
[2019-03-25 20:57] VITALS: BP 132/90
--- NOTE | 2019-03-25 21:02 | ED Physician Documentation ---
History of Present Illness - Stated complaint Stated Complaint: R HAND INJ - Chief complaint Chief Complaint: Trauma Ext - History obtained from History obtained from: Patient (the patient is a 24 y/o right hand dominant female who p/w a cc of right hand pain after she punched a wall. she denies any other complaints.) Review of Systems Ten Systems: 10 systems reviewed and negative Constitutional: reports: Reviewed and negative Eyes: reports: Reviewed and negative Ears: reports: Reviewed and negative Nose: reports: Reviewed and negative Throat: reports: Reviewed and negative Cardiac: reports: Reviewed and negative Respiratory: reports: Reviewed and negative GI: reports: Reviewed and negative : reports: Reviewed and negative Skin: reports: Reviewed and negative Musculoskeletal: reports: Other (right hand pain) Neurologic: reports: Reviewed and negative Psychiatric: reports: Reviewed and negative Endocrine: reports: Reviewed and negative Immunocompromised: reports: Reviewed and negative PD PAST MEDICAL HISTORY - Past Medical History Cardiovascular: None Respiratory: None Neuro: None Endocrine/Autoimmune: None GI: None 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 HEENT: None Psych: Depression, Anxiety, ADD/ADHD Musculoskeletal: None Derm: None - Past Surgical History Past Surgical History: No - Present Medications Home Medications: Ambulatory Orders Medication Instructions Recorded Confirmed Ibuprofen [Motrin] 800 mg PO Q8H PRN #30 tablet 11/27/18 Ondansetron Odt [Zofran] 4 mg TL Q6H PRN #10 tablet 11/27/18 - Allergies Allergies/Adverse Reactions: Allergies Allergy/AdvReac Type Severity Reaction Status Date / Time Penicillins Allergy Anaphylaxis Verified 03/25/19 20:53 cyclobenzaprine AdvReac Emesis Verified 03/25/19 20:53 [From Flexeril] - Social History Does the pt smoke?: No Smoking Status: Never smoker Does the pt drink ETOH?: No Does the pt have substance abuse?: Yes - Immunizations Immunizations are current?: No Immunizations: Other immun current - POLST Patient has POLST: No PD ED PE NORMAL - Vitals Vital signs reviewed: Yes - General General: Alert and oriented X 3, No acute distress - HEENT HEENT: Atraumatic, PERRL - Neck Neck: Supple, no meningeal sign - Cardiac Cardiac: RRR, Strong equal pulses - Respiratory Respiratory: No respiratory distress, Clear bilaterally - Abdomen Abdomen: Normal bowel sounds, Soft, Non tender, Non distended - Derm Derm: Normal color, Warm and dry, No rash - Extremities Extremities: No deformity, Other (tenderness to palpation on the right hand over the fourth mcp joint, no gross deformity, compartments are soft, radian/median/ulnar motor and sensory exam is intact, remnants cutter strength is 5/5, radial pulses 2+ and symettric. ) - Neuro Neuro: Alert and oriented X 3 - Psych Psych: Normal mood, Normal affect Results - Vitals Vitals: Vital Signs - 24 hr 03/25/19 20:53 Temperature 36.8 C Heart Rate 80 Respiratory 15 Rate Blood Pressure 132/90 H O2 Saturation 99 Oxygen O2 Source Room air PD MEDICAL DECISION MAKING - ED course Complexity details: other (right hand injury, will get radiograph to rule out fracture.) Departure - Departure Disposition: 01 Home, Self Care Clinical Impression: Injury of right hand Qualifiers: Encounter type: initial encounter Qualified Code(s): S69.91XA - Unspecified injury of right wrist, hand and finger(s), initial encounter Contusion of right hand Qualifiers: Encounter type: initial encounter Qualified Code(s): S60.221A - Contusion of right hand, initial encounter Condition: Good Instructions: ED Contusion Hand Ch Follow-Up: Chrsi Ngo MD [Primary Care Provider] - Tomorrow Comments: ice as needed and take tylenol as needed
--- NOTE | 2019-03-25 21:21 | XRAY Report ---
Reason: Trauma Procedure Date: 03/25/2019 Accession Number: [id number] / [id number] Procedure: XR - Hand 3 View RT CPT Code: Final Report FULL RESULT: EXAM: RIGHT HAND RADIOGRAPHY EXAM DATE: 03/25/2019 09:09 PM. CLINICAL HISTORY: Trauma. COMPARISON: HAND 3 VIEW RT 11/23/2017 2:16 PM. TECHNIQUE: 3 views. FINDINGS: Bones: Normal. No fractures or bone lesions. Joints: Normal. No subluxations. Soft Tissues: There is soft tissue swelling of the dorsal MCP joints. IMPRESSION: Soft tissue swelling without fracture. RADIA
== END 2019-03-25 21:51 | disposition home or self-care (01) ==
LOC: ED 20:50
DX: S69.91XA Unspecified injury of right wrist, hand and finger(s), initial encounter (principal); S60.221A Contusion of right hand, initial encounter; W22.01XA Walked into wall, initial encounter
CPT/HCPCS: 99282; 99283

== ENCOUNTER 2019-05-10 18:52 | Emergency (ER) | payer MEDICAID ==
[2019-05-10] MEDS ORDERED: TETANUS/DIPHTHERIA/PERTUSSIS 0.5 ML SYRINGE IM ONE (19:08)
[2019-05-10] MEDS ORDERED: BUFFERED LIDOCAINE 10 ML SYRINGE SUBQ STA (19:08)
--- NOTE | 2019-05-10 19:27 | ED Physician Documentation ---
PD HPI UPPER EXT INJURY - Stated complaint Stated Complaint: L INDEX FINGER LAC - Chief complaint Chief Complaint: Laceration - History obtained from History obtained from: Patient - Additonal information Additional information: Yared is a 24-year-old female is here today with a left index finger laceration. She states she was trying to cut a zip tie at home with a knife when she actually cut the dorsum of her finger. She has full range of motion of her finger. She does not recall her last tetanus shot. Upon arrival hemostasis was obtained by her prior pressure dressing. Patient has sensation. Has no further complaints at this time. 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 : None HEENT: None Psych: Depression, Anxiety, ADD/ADHD Musculoskeletal: None Derm: None - Past Surgical History Past Surgical History: No - Present Medications Home Medications: Ambulatory Orders Medication Instructions Recorded Confirmed Ibuprofen [Motrin] 800 mg PO Q8H PRN #30 tablet 11/27/18 Ondansetron Odt [Zofran] 4 mg TL Q6H PRN #10 tablet 11/27/18 - Allergies Allergies/Adverse Reactions: Allergies Allergy/AdvReac Type Severity Reaction Status Date / Time Penicillins Allergy Anaphylaxis Verified 03/25/19 20:53 cyclobenzaprine AdvReac Emesis Verified 03/25/19 20:53 [From Flexeril] - Social History Does the pt smoke?: No Smoking Status: Never smoker Does the pt drink ETOH?: No Does the pt have substance abuse?: Yes - Immunizations Immunizations are current?: No Immunizations: Other immun current - POLST Patient has POLST: No PD ED PE NORMAL - General General: Alert and oriented X 3, No acute distress, Well developed/nourished - HEENT HEENT: Atraumatic - Neck Neck: Supple, no meningeal sign - Cardiac Cardiac: RRR - Respiratory Respiratory: No respiratory distress - Derm Derm: Other (There is a 3 cm V-shaped laceration at the dorsum of the left index finger.) - Neuro Neuro: Alert and oriented X 3, No motor deficit - Psych Psych: Other (Patient is anxious and tearful. Speech is rapid and pressured.) Results - Vitals Vitals: Vital Signs - 24 hr 05/10/19 18:56 Temperature 36.6 C Heart Rate 69 Respiratory 16 Rate Blood Pressure 144/85 H O2 Saturation 97 Oxygen O2 Source Room air Procedures - Laceration (location) Finger left Wound type: Flap (Wound was infiltrated with 1% lidocaine. Wound was rinsed with normal saline. Wound was explored in a bloodless field. Wound was approximated with #650 supraoptic nylon sutures. Patient did cry and yell throughout the procedure. However her pain was also stimulated with other distractors additionally. Wound care was discussed in detail. Patient did not have any immediate complications. Return precautions were discussed.) PD MEDICAL DECISION MAKING - ED course Complexity details: other (Care was discussed. Patient agrees to continue wound care at home. Have her sutures removed in 10 to 14 days. Seek care sooner for signs and symptoms of infection as needed.) Departure - Departure Disposition: 01 Home, Self Care Clinical Impression: Finger laceration Condition: Stable Instructions: ED Laceration All Comments: Use Tylenol or Profen as needed for comfort. Continue wound care. Have your sutures removed in 10 to 14 days. Seek care sooner for any signs and symptoms of infection as needed.
[2019-05-10] MEDS ORDERED: BACITRACIN ZINC OINT 1 PACKET TOP STA (20:15)
[2019-05-10] MEDS ORDERED: IBUPROFEN 600 MG TABLET PO STA (20:15)
--- NOTE | 2019-05-10 20:22 | XRAY Report ---
Reason: laceration, r/o bone involvment Procedure Date: 05/10/2019 Accession Number: [id number] / [id number] Procedure: XR - Finger(s) LT CPT Code: Final Report FULL RESULT: EXAM: LEFT SECOND DIGIT RADIOGRAPHY EXAM DATE: 05/10/2019 07:47 PM. CLINICAL HISTORY: Laceration. Concern for bone involvement. COMPARISON: HAND 3 VIEW RT 03/25/2019 8:52 PM. TECHNIQUE: 3 views. FINDINGS: Bones: Normal. No fracture or bone lesion. Joints: Normal. No subluxations. Soft Tissues: Soft tissue injury noted distally. IMPRESSION: No bony abnormality. RADIA
[2019-05-10 21:00] VITALS: BP 122/78
== END 2019-05-10 20:59 | disposition home or self-care (01) ==
LOC: ED 18:52
DX: S61.211A Laceration without foreign body of left index finger without damage to nail, initial encounter (principal); W26.0XXA Contact with knife, initial encounter; Y93.89 Activity, other specified; Y99.0 Civilian activity done for income or pay
CPT/HCPCS: 12002; 73140; 90471; 90715; 99282; 99283; A9270

== ENCOUNTER 2019-05-24 11:51 | Emergency (ER) | payer OTHER, MEDICAID ==
[2019-05-24 12:02] VITALS: BP 112/69
--- NOTE | 2019-05-24 12:09 | ED Physician Documentation ---
History of Present Illness - Stated complaint Stated Complaint: SUTURE REMOVAL - Chief complaint Chief Complaint: General - History obtained from History obtained from: Patient Review of Systems Constitutional: denies: Fever, Chills, Myalgias, Fatigue, Weight Loss, Sweats, Reviewed and negative, Other Cardiac: denies: Chest pain / pressure, Palpitations, Pedal edema, Calf pain, Reviewed and negative, Other Respiratory: denies: Dyspnea, Cough, Hemoptysis, Wheezing, Reviewed and negative, Other Skin: reports: Laceration (s) (Left index finger, suture removal.) PD PAST MEDICAL HISTORY - Past Medical History Cardiovascular: None Respiratory: None Neuro: None Endocrine/Autoimmune: None GI: None 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 : None HEENT: None Psych: Depression, Anxiety, ADD/ADHD Musculoskeletal: None Derm: None - Past Surgical History Past Surgical History: No - Present Medications Home Medications: Ambulatory Orders Medication Instructions Recorded Confirmed Ibuprofen [Motrin] 800 mg PO Q8H PRN #30 tablet 11/27/18 Ondansetron Odt [Zofran] 4 mg TL Q6H PRN #10 tablet 11/27/18 - Allergies Allergies/Adverse Reactions: Allergies Allergy/AdvReac Type Severity Reaction Status Date / Time Penicillins Allergy Anaphylaxis Verified 03/25/19 20:53 cyclobenzaprine AdvReac Emesis Verified 03/25/19 20:53 [From Flexeril] - Social History Does the pt smoke?: No Smoking Status: Never smoker Does the pt drink ETOH?: No Does the pt have substance abuse?: Yes - Immunizations Immunizations are current?: No Immunizations: Other immun current - POLST Patient has POLST: No PD ED PE NORMAL - General General: Alert and oriented X 3 - HEENT HEENT: Atraumatic - Respiratory Respiratory: No respiratory distress - Derm Derm: Normal color, Warm and dry, Other Results - Vitals Vitals: Vital Signs - 24 hr 05/24/19 11:53 Temperature 37 C Heart Rate 84 Respiratory 16 Rate Blood Pressure 112/69 O2 Saturation 98 Oxygen O2 Source Room air Procedures - General procedure General procedure: 5 sutures to the left index finger removed without complications. Patient tolerated well. PD MEDICAL DECISION MAKING - ED course Complexity details: d/w patient Departure - Departure Disposition: 01 Home, Self Care Clinical Impression: Visit for suture removal Condition: Good Instructions: Wound Care Comments: Continue to monitor your laceration site for signs of infection. Follow-up with your primary care provider for any further care needed for the laceration.
== END 2019-05-24 12:26 | disposition home or self-care (01) ==
LOC: ED 11:51
DX: S61.211D Laceration without foreign body of left index finger without damage to nail, subsequent encounter (principal)
CPT/HCPCS: 99281; 99282

== ENCOUNTER 2020-01-07 15:03 | Emergency (ER) | payer MEDICAID, OTHER ==
[2020-01-07 15:58] LABS: HCG UR QUAL NEGATIVE
--- NOTE | 2020-01-07 16:41 | XRAY Report ---
PROCEDURE: Hip w/Pelvis 2-3V RT INDICATIONS: R hip pain after lifting. TECHNIQUE: AP pelvis with frog-leg lateral view of the right hip. COMPARISON: None. FINDINGS: Bones: No fractures or dislocations. Pelvic ring appears intact. No suspicious bony lesions. Soft tissues: The visualized bowel gas pattern is normal. No suspicious soft tissue calcifications. IMPRESSION: No acute osseous abnormality. Reviewed by: Jaime Foote DO on 01/07/2020 3:40 PM [facility] Approved by: Jaime Foote DO on 01/07/2020 3:40 PM [facility] Station ID: [id number]
[2020-01-07 16:45] VITALS: BP 112/58
--- NOTE | 2020-01-07 16:53 | ED Physician Documentation ---
History of Present Illness - Stated complaint Stated Complaint: HIP JOINT PX - Chief complaint Chief Complaint: Ext Problem - History obtained from History obtained from: Patient - History of Present Illness Timing: How many weeks ago (2) Pain level max: 5 Pain level now: 3 - Additonal information Additional information: 24-year-old female presents to the emergency department with a right hip pain. She states that it started after she was lifting a heavy object about a week ago. She states worse with movement and better with rest. No numbness or tingling. No back pain. Denies any possibility of . 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 HEENT: None Psych: Depression, Anxiety, ADD/ADHD Musculoskeletal: None Derm: None - Past Surgical History Past Surgical History: No - Present Medications Home Medications: Ambulatory Orders Medication Instructions Recorded Confirmed Ibuprofen [Motrin] 800 mg PO Q8H PRN #30 tablet 11/27/18 Ondansetron Odt [Zofran] 4 mg TL Q6H PRN #10 tablet 11/27/18 Ibuprofen [Motrin] 800 mg PO Q8H PRN #30 tablet 01/07/20 - Allergies Allergies/Adverse Reactions: Allergies Allergy/AdvReac Type Severity Reaction Status Date / Time Penicillins Allergy Anaphylaxis Verified 01/07/20 15:06 cyclobenzaprine AdvReac Emesis Verified 01/07/20 15:06 [From Flexeril] - Social History Does the pt smoke?: No Smoking Status: Never smoker Does the pt drink ETOH?: No Does the pt have substance abuse?: Yes Substance Use and Type: Marijuana - Immunizations Immunizations are current?: No Immunizations: Other immun current - POLST Patient has POLST: No PD ED PE NORMAL - Vitals Vital signs reviewed: Yes - General General: Alert and oriented X 3, No acute distress - HEENT HEENT: Moist mucous membranes - Neck Neck: Supple, no meningeal sign - Cardiac Cardiac: RRR - Respiratory Respiratory: No respiratory distress, Clear bilaterally - Back Back: No spinal TTP - Derm Derm: Warm and dry - Extremities Extremities: Other (R hip - Pain with internal and external rotation. No bony tenderness. No swelling. No ecchymosis. Neurovascular intact. Otherwise normal examination of the right lower extremity) - Neuro Neuro: Alert and oriented X 3 - Psych Psych: Normal mood, Normal affect Results - Vitals Vitals: Vital Signs - 24 hr 01/07/20 16:44 Temperature 36.3 C L Heart Rate 72 Respiratory 16 Rate Blood Pressure 112/58 L O2 Saturation 99 Oxygen O2 Source Room air - Labs Labs: Laboratory Tests 01/07/20 15:30 Ur Specific [place] 1.025 Urine HCG, Qual NEGATIVE - Rads (name of study) Right hip x-ray Radiology: Prelim report reviewed, EMP read contemporaneously, See rad report PD MEDICAL DECISION MAKING - ED course Complexity details: considered differential, d/w patient ED course: No acute abnormalities on x-ray. Ambulating well. Likely groin strain. We will continue supportive care and have her follow-up with her doctor. Patient counseled regarding signs and symptoms for which I believe and urgent re- evaluation would be necessary. Patient with good understanding of and agreement to plan and is comfortable going home at this time This document was made in part using voice recognition software. While efforts are made to proofread this document, sound alike and grammatical errors may occur. Departure - Departure Disposition: 01 Home, Self Care Clinical Impression: Strain of hip and thigh Qualifiers: Encounter type: initial encounter Laterality: right Qualified Code(s): S76.011A - Strain of muscle, fascia and tendon of right hip, initial encounter Condition: Good Instructions: ED Strain Groin Follow-Up: your,doctor in 1 week [Other] Prescriptions: Ibuprofen [Motrin] 800 mg PO Q8H PRN #30 tablet PRN Reason: PAIN &/OR FEVER Comments: Return if you worsen. Continue gentle stretching at home. Discharge Date/Time: 01/07/20 17:17
== END 2020-01-07 17:17 | disposition home or self-care (01) ==
LOC: ED 15:03
DX: S76.011A Strain of muscle, fascia and tendon of right hip, initial encounter (principal); X50.0XXA Overexertion from strenuous movement or load, initial encounter; Y93.89 Activity, other specified
CPT/HCPCS: 81025; 99283; 99284

== ENCOUNTER 2020-04-06 20:53 | Emergency (ER) | payer MEDICAID ==
[2020-04-06 21:00] VITALS: BP 122/71
[2020-04-06] MEDS ORDERED: predniSONE 20 MG TABLET PO STA (21:22)
--- NOTE | 2020-04-07 02:02 | ED Physician Documentation ---
History of Present Illness - Stated complaint Stated Complaint: ALLERGIC RXN - Chief complaint Chief Complaint: Allergic Rx - History obtained from History obtained from: Patient - History of Present Illness Timing: How many days ago (2) Pain level max: 0 Pain level now: 0 Improved by: nothing Worsened by: no apparent inciting nor exacerbating factors - Additonal information Additional information: c/o gradual onset of pruritic rash x 2 days without apparent inciting event. rash is BUE, chest, abdomen. No new soaps/detergents, medications, foods, or other apparent exposures. Denies h/o allergic reaction, denies h/o similar symptoms. She presents to ED at this time because this evening she has gradually developed sensation of her hands and tongue swelling. Denies dyspnea, wheezing Review of Systems Constitutional: denies: Fever Cardiac: reports: Reviewed and negative Respiratory: reports: Reviewed and negative GI: reports: Nausea. 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 HEENT: None Psych: Depression, Anxiety, ADD/ADHD Musculoskeletal: None Derm: None - Past Surgical History Past Surgical History: No - Present Medications Home Medications: Ambulatory Orders Medication Instructions Recorded Confirmed QUEtiapine [SEROquel] 600 mg PO QPM 04/06/20 04/06/20 lamoTRIgine [Lamictal] 300 mg PO 04/06/20 predniSONE [Deltasone] 40 mg PO DAILY 4 Days #8 tab 04/06/20 - Allergies Allergies/Adverse Reactions: Allergies Allergy/AdvReac Type Severity Reaction Status Date / Time Penicillins Allergy Mild Hives Verified 04/06/20 21:01 cyclobenzaprine AdvReac Emesis Verified 01/07/20 15:06 [From Flexeril] - Social History Does the pt smoke?: No Smoking Status: Never smoker Does the pt drink ETOH?: No Does the pt have substance abuse?: Yes - Immunizations Immunizations are current?: No Immunizations: Other immun current - POLST Patient has POLST: No PD ED PE NORMAL - Vitals Vital signs reviewed: Yes - General General: Alert and oriented X 3, No acute distress, Well developed/nourished - HEENT HEENT: Moist mucous membranes, Pharynx benign (no obvious perioral nor intraoral swelling ) - Neck Neck: Supple, no meningeal sign - Cardiac Cardiac: RRR, No murmur - Respiratory Respiratory: No respiratory distress, Clear bilaterally PD ED PE EXPANDED - Derm Derm: Rash (fine, faint rash on BUE with slightly more prominence on chest/abdomen; rash is fine erythematous papules without confluence) Results - Vitals Vitals: Oxygen O2 Source Room air PD MEDICAL DECISION MAKING - ED course Complexity details: considered differential, d/w patient ED course: subtle exanthem on chest and abdomen with minimal rash on BUE. Lungs CTA bilaterally and she is in NAD except for frequently scratching her hands due to pruritis. Although the findings on exam are subtle, it would be prudent to treat as allergic reaction given pruritic rash (albeit faint) combined with sensation of hand and tongue swelling. Given prednisone in ED with rx for same. She is driving home and thus advised to take benadryl once she is home per label instructions (she says she does have this at home). Departure - Departure Disposition: 01 Home, Self Care Clinical Impression: Allergic reaction Qualifiers: Encounter type: initial encounter Qualified Code(s): T78.40XA - Allergy, unspecified, initial encounter Condition: Good Instructions: ED Allergic Reaction General Other Follow-Up: [facility] [Provider Group] [facility] [Provider Group] Prescriptions: predniSONE [Deltasone] 40 mg PO DAILY 4 Days #8 tab Comments: In addition to the steroid (prednisone) that was prescribed tonight, continue the anithistmine (diphenhydramine (Benadryl)) every 6 hours as needed (as directed on package label). Discharge Date/Time: 04/06/20 21:29
== END 2020-04-06 21:29 | disposition home or self-care (01) ==
LOC: ED 20:53
DX: T78.40XA Allergy, unspecified, initial encounter (principal); X58.XXXA Exposure to other specified factors, initial encounter; L29.9 Pruritus, unspecified
CPT/HCPCS: 99282; 99284; J7512

== ENCOUNTER 2020-09-29 16:46 | Emergency (ER) | payer MEDICAID ==
[2020-09-29 16:52] VITALS: BP 132/59
[2020-09-29 17:06] LABS: BILIRUBIN,URINE NEGATIVE (NEGATIVE); GLUCOSE, URINE (UA) NEGATIVE (NEGATIVE); KETONES,URINE (UA) NEGATIVE (NEGATIVE); LEUKOCYTE ESTERASE, URINE SMALL (NEGATIVE); NITRITE,URINE NEGATIVE (NEGATIVE); OCCULT BLOOD,URINE TRACE-INTA (NEGATIVE); PROTEIN,URINE NEGATIVE (NEGATIVE); UROBILINOGEN,URINE 0.2 (NORMAL) E.U./dL (NORMAL)
[2020-09-29 17:09] LABS: CLARITY,URINE HAZY (CLEAR); HCG UR QUAL NEGATIVE
[2020-09-29 17:18] LABS: BACTERIA,URINE Moderate /HPF (None Seen); RBC,URINE 0-5 /HPF (0-5); SQUAMOUS EPITHELIAL CELL,UR NONE SEEN (<= Few)
[2020-09-29] MEDS ORDERED: cefTRIAXone 1 GM VIAL IM STA (17:26)
[2020-09-29] MEDS ORDERED: LIDOCAINE 1% 2 ML VIAL MC ONE (17:26)
--- NOTE | 2020-09-29 17:29 | ED Physician Documentation ---
PD HPI FEMALE - Stated complaint Stated Complaint: FEMALE - Chief complaint Chief Complaint: UTI - History obtained from History obtained from: Patient - History of Present Illness Timing - onset: How many days ago (4) Timing - duration: Days (4) Timing - details: Gradual onset Associated symptoms: Back pain, Dysuria, Urinary frequency, Other (vomiting) Contributing factors: No: Similar symptoms before: Diagnosis (UTI) Recently seen: Not recently seen - Additional information Additional information: 25-year-old female has developed some urinary urgency frequency and dysuria over the past 4 days she has not had a fever with this she does have some back pain and she did have some vomiting 2 days ago. Review of Systems Constitutional: denies: Fever Eyes: denies: Decreased vision Ears: denies: Ear pain Nose: denies: Congestion Throat: denies: Sore throat Cardiac: denies: Chest pain / pressure Respiratory: denies: Cough GI: reports: Nausea. denies: Abdominal Pain, Vomiting : reports: Dysuria, Frequency Skin: denies: Rash Musculoskeletal: reports: Back pain. 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 : None HEENT: None Psych: Depression, Anxiety, ADD/ADHD Musculoskeletal: None Derm: None - Past Surgical History Past Surgical History: No - Present Medications Home Medications: Ambulatory Orders Medication Instructions Recorded Confirmed QUEtiapine [SEROquel] 600 mg PO QPM 04/06/20 04/06/20 lamoTRIgine [Lamictal] 300 mg PO 04/06/20 Atomoxetine HCl [Strattera] 25 mg PO DAILY 09/29/20 09/29/20 [place] Carbonate [[place] 450 mg PO QPM 09/29/20 09/29/20 Carbonate ER] Sulfamethox/Trimeth 800/160 1 each PO BID #14 tablet 09/29/20 [Bactrim Ds] - Allergies Allergies/Adverse Reactions: Allergies Allergy/AdvReac Type Severity Reaction Status Date / Time Penicillins Allergy Mild Hives Verified 09/29/20 16:51 - Social History Does the pt smoke?: No Smoking Status: Never smoker Does the pt drink ETOH?: No Does the pt have substance abuse?: Yes - Immunizations Immunizations are current?: No Immunizations: Other immun current - POLST Patient has POLST: No PD ED PE NORMAL - Vitals Vital signs reviewed: Yes (Normal) - General General: Alert and oriented X 3, No acute distress, Well developed/nourished - HEENT HEENT: Atraumatic, PERRL, EOMI - Respiratory Respiratory: No respiratory distress - Abdomen Abdomen: Normal bowel sounds, Soft, Non distended, No organomegaly, Other (There is tenderness to bimanual palpation of the right kidney) - Back Back: No spinal TTP, Other (Tenderness to palpation of the right CVA area) - Derm Derm: Normal color, Warm and dry, No rash - Extremities Extremities: No deformity, No edema - Neuro Neuro: Alert and oriented X 3, 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, No motor deficit, No sensory deficit, Normal speech Eye Opening: Spontaneous Motor: Obeys Commands Verbal: Oriented GCS Score: 15 - Psych Psych: Normal mood, Normal affect Results - Vitals Vitals: Vital Signs - 24 hr 09/29/20 16:48 Temperature 37.2 C Heart Rate 75 Respiratory 16 Rate Blood Pressure 132/59 H O2 Saturation 99 Oxygen O2 Source Room air - Labs Labs: Laboratory Tests 09/29/20 16:55 Urine Color YELLOW Urine Clarity HAZY Urine pH 7.0 Ur Specific [place] 1.020 Urine Protein NEGATIVE Urine Glucose (UA) NEGATIVE Urine Ketones NEGATIVE Urine Occult Blood TRACE-INTA Urine Nitrite NEGATIVE Urine Bilirubin NEGATIVE Urine Urobilinogen 0.2 (NORMAL) Ur Leukocyte Esterase SMALL H Urine RBC 0-5 Urine WBC 11-25 H Ur Squamous Epith Cells NONE SEEN Urine Bacteria Moderate H Ur Microscopic Review INDICATED Urine Culture Comments INDICATED Urine HCG, Qual NEGATIVE PD MEDICAL DECISION MAKING - ED course Complexity details: considered differential, d/w patient ED course: 25-year-old female with urinary tract symptoms for 4 days has had some vomiting she has also had some pain in her back she has not had fever. She has tenderness to bimanual palpation of the right kidney. She is treated in the emergency department with Rocephin 1 g IM and we will place her on some sulfamethoxazole trimethoprim. Departure - Departure Disposition: 01 Home, Self Care Clinical Impression: Pyelonephritis Condition: Stable Instructions: ED Kidney Infec Female Follow-Up: [facility] [place] [Provider Group] Prescriptions: Sulfamethox/Trimeth 800/160 [Bactrim Ds] 1 each PO BID #14 tablet
== END 2020-09-29 17:59 | disposition home or self-care (01) ==
LOC: ED 16:46
DX: N12 Tubulo-interstitial nephritis, not specified as acute or chronic (principal); F32.9 Major depressive disorder, single episode, unspecified; F41.9 Anxiety disorder, unspecified; F90.9 Attention-deficit hyperactivity disorder, unspecified type; Z79.899 Other long term (current) drug therapy
CPT/HCPCS: 81001; 81003; 81025; 87077; 87086; 96372; 99283; 99284

== ENCOUNTER 2020-11-03 16:26 | Emergency (ER) | payer MEDICAID ==
[2020-11-03 16:51] VITALS: BP 119/70
[2020-11-03 17:17] LABS: RAPID STREP SCREEN Negative (Negative)
--- NOTE | 2020-11-03 17:33 | ED Physician Documentation ---
PD HPI HEENT - Stated complaint Stated Complaint: SWOLLEN NECK/HEADACHE/SORE THROAT/VOMIT - Chief complaint Chief Complaint: Heent - History obtained from History obtained from: Patient - Additional information Additional information: 25-year-old woman who is not immunized against Covid has had sore throat, body aches and chills since yesterday. Has minimal cough. No known exposure to Covid. 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 : None HEENT: None Psych: Depression, Anxiety, ADD/ADHD Musculoskeletal: None Derm: None - Past Surgical History Past Surgical History: No - Present Medications Home Medications: Ambulatory Orders Medication Instructions Recorded Confirmed QUEtiapine [SEROquel] 600 mg PO QPM 04/06/20 04/06/20 lamoTRIgine [Lamictal] 300 mg PO 04/06/20 Atomoxetine HCl [Strattera] 25 mg PO DAILY 09/29/20 09/29/20 [place] Carbonate [[place] 450 mg PO QPM 09/29/20 09/29/20 Carbonate ER] Sulfamethox/Trimeth 800/160 1 each PO BID #14 tablet 09/29/20 [Bactrim Ds] predniSONE [Deltasone] 60 mg PO DAILY 5 Days #15 tablet 11/03/20 - Allergies Allergies/Adverse Reactions: Allergies Allergy/AdvReac Type Severity Reaction Status Date / Time Penicillins Allergy Mild Hives Verified 11/03/20 16:51 - Social History Does the pt smoke?: No Smoking Status: Never smoker Does the pt drink ETOH?: No Does the pt have substance abuse?: Yes - Immunizations Immunizations are current?: No Immunizations: Other immun current - POLST Patient has POLST: No PD ED PE NORMAL - Vitals Vital signs reviewed: Yes - General General: Alert and oriented X 3, No acute distress - HEENT HEENT: Other (Exudative tonsillitis with moderate anterior cervical adenopathy) - Neck Neck: Supple, no meningeal sign, No bony TTP - Derm Derm: No rash - Neuro Neuro: Alert and oriented X 3, Normal speech Results - Vitals Vitals: Vital Signs - 24 hr 11/03/20 16:46 Temperature 36.1 C L Heart Rate 92 Respiratory 16 Rate Blood Pressure 119/70 O2 Saturation 98 Oxygen O2 Source Room air - Labs Labs: Laboratory Tests 11/03/20 16:52 Group A Strep Rapid Negative Departure - Departure Disposition: Home, Self Care Clinical Impression: Viral pharyngitis Condition: Good Record reviewed to determine appropriate education?: Yes Instructions: ED Pharyngitis Viral Report Pending Prescriptions: predniSONE [Deltasone] 60 mg PO DAILY 5 Days #15 tablet Comments: You have a Covid test pending. You need to self quarantine until the result is done and negative. Do not leave your house. Do not get near anybody. The results should be done in 48 to 72 hours. We will call with a positive result, the fastest way to get a negative result for confirmation though is to go to the hospital website at [email or web address], click on the my [facility] tab and sign up for the patient portal. If any friends or family get sick and would like to have a Covid test done, but do not have signs or symptoms that would necessitate being hospitalized, we encourage testing through our coronavirus swabbing station, call [phone] to schedule an appointment. Forms: Activity restrictions
== END 2020-11-03 17:35 | disposition home or self-care (01) ==
LOC: ED 16:26
DX: J02.8 Acute pharyngitis due to other specified organisms (principal); Z20.822 Contact with and (suspected) exposure to COVID-19
CPT/HCPCS: 87070; 87430; 99283

== ENCOUNTER 2020-12-21 19:09 | Emergency (ER) | payer MEDICAID ==
[2020-12-21] MEDS ORDERED: SODIUM CHLORIDE 0.9% 1,000 ML IV STA (19:21)
[2020-12-21] MEDS ORDERED: HYDROmorphone 1 MG/ML CARPUJECT IVP STA ×2 (19:21→21:17)
[2020-12-21] MEDS ORDERED: ONDANSETRON 4 MG/2 ML VIAL IVP STA (19:21)
--- NOTE | 2020-12-21 19:24 | ED Physician Documentation ---
History of Present Illness - Stated complaint Stated Complaint: LOWER RT ABDOMIN PX - Chief complaint Chief Complaint: Abd Pain - Additonal information Additional information: 25-year-old female presents emergency department with acute sudden onset right lower quadrant abdominal pain. There have been no fevers or vomiting. The pain occurred at rest out of nowhere. She does report that for the last 3 to 4 days she has been having some diarrhea and generalized belly cramping. Denies possibility of she is currently on her menses. Denies dysuria urgency or frequency. No pertinent past surgical history. 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 HEENT: None Psych: Depression, Anxiety, ADD/ADHD Musculoskeletal: None Derm: None - Past Surgical History Past Surgical History: No - Present Medications Home Medications: Ambulatory Orders Medication Instructions Recorded Confirmed QUEtiapine [SEROquel] 600 mg PO QPM 04/06/20 04/06/20 lamoTRIgine [Lamictal] 300 mg PO 04/06/20 Atomoxetine HCl [Strattera] 25 mg PO DAILY 09/29/20 09/29/20 [place] Carbonate [[place] 450 mg PO QPM 09/29/20 09/29/20 Carbonate ER] Sulfamethox/Trimeth 800/160 1 each PO BID #14 tablet 09/29/20 [Bactrim Ds] predniSONE [Deltasone] 60 mg PO DAILY 5 Days #15 tablet 11/03/20 - Allergies Allergies/Adverse Reactions: Allergies Allergy/AdvReac Type Severity Reaction Status Date / Time Penicillins Allergy Mild Hives Verified 12/21/20 19:11 - Social History Does the pt smoke?: No Smoking Status: Never smoker Does the pt drink ETOH?: No Does the pt have substance abuse?: Yes - Immunizations Immunizations are current?: No Immunizations: Other immun current - POLST Patient has POLST: No PD ED PE NORMAL - General General: Alert and oriented X 3. No: No acute distress (In pain) - HEENT HEENT: Atraumatic, Moist mucous membranes, Pharynx benign - Neck Neck: Supple, no meningeal sign - Cardiac Cardiac: RRR, No murmur - Respiratory Respiratory: Clear bilaterally - Abdomen Abdomen: Normal bowel sounds, Soft. No: Non tender (Focal right lower quadrant abdominal pain with guarding and rebound. Equivocal McBurney's) - Back Back: No CVA TTP, No spinal TTP - Derm Derm: Warm and dry - Extremities Extremities: No deformity Results - Vitals Vitals: Vital Signs - 24 hr 12/21/20 19:12 Temperature 36.5 C Heart Rate 79 Respiratory 16 Rate Blood Pressure 132/90 H O2 Saturation 100 Oxygen O2 Source Room air - Labs Labs: Laboratory Tests 12/21/20 12/21/20 12/21/20 19:27 19:27 19:51 WBC 7.9 RBC 3.97 L Hgb 12.1 Hct 37.2 MCV 93.7 MCH 30.5 MCHC 32.5 RDW 12.9 Plt Count 302 MPV 9.0 Neut # (Auto) 4.9 Lymph # (Auto) 2.5 [place] # (Auto) 0.4 Eos # (Auto) 0.1 Baso # (Auto) 0.0 Absolute Nucleated RBC 0.00 Nucleated RBC % 0.0 Sodium 141 Potassium 3.6 Chloride 105 Carbon Dioxide 25 Anion Gap 11.0 BUN 9 Creatinine 0.6 Estimated GFR (MDRD) 122 Glucose 78 Calcium 9.9 Total Bilirubin 0.2 AST 24 ALT 15 Alkaline Phosphatase 44 Total Protein 7.6 Albumin 5.1 Globulin 2.5 Albumin/Globulin Ratio 2.0 Lipase 42 Serum HCG, Qual NEGATIVE Urine Color Urine Clarity Urine pH Ur Specific [place] Urine Protein Urine Glucose (UA) Urine Ketones Urine Occult Blood Urine Nitrite Urine Bilirubin Urine Urobilinogen Ur Leukocyte Esterase Ur Microscopic Review Urine Culture Comments Urine HCG, Qual 12/21/20 20:02 WBC RBC Hgb Hct MCV MCH MCHC RDW Plt Count MPV Neut # (Auto) Lymph # (Auto) [place] # (Auto) Eos # (Auto) Baso # (Auto) Absolute Nucleated RBC Nucleated RBC % Sodium Potassium Chloride Carbon Dioxide Anion Gap BUN Creatinine Estimated GFR (MDRD) Glucose Calcium Total Bilirubin AST ALT Alkaline Phosphatase Total Protein Albumin Globulin Albumin/Globulin Ratio Lipase Serum HCG, Qual Urine Color YELLOW Urine Clarity CLEAR Urine pH 7.5 Ur Specific [place] 1.015 Urine Protein NEGATIVE Urine Glucose (UA) NEGATIVE Urine Ketones NEGATIVE Urine Occult Blood NEGATIVE Urine Nitrite NEGATIVE Urine Bilirubin NEGATIVE Urine Urobilinogen 0.2 (NORMAL) Ur Leukocyte Esterase NEGATIVE Ur Microscopic Review NOT INDICATED Urine Culture Comments NOT INDICATED Urine HCG, Qual NEGATIVE - Rads (name of study) CT abd Radiology: Final report received (normal appendix. changes of mild gastritis) PD MEDICAL DECISION MAKING - ED course Complexity details: reviewed results, re-evaluated patient, considered differential, d/w patient ED course: 25-year-old female presents emergency department for evaluation of acute onset right lower quadrant abdominal pain that began about 40 minutes prior to arrival. No history of similar in the past. She had however reported that she has had about 3 to 4 days of diarrhea without vomiting. No fevers. Screening labs show no acute worrisome abnormalities. No findings of infection in the urine however she is quite tender in the right lower quadrant therefore a CT of the abdomen was completed. No findings to suggest acute appendicitis. There is a fair amount of bowel air overlying the lower pelvic organs. I discussed the CT readings with the radiologist Dr. Flynn and she could not clearly comment on the ovaries for evaluation of cyst or torsion therefore a Pelvic ultrasound will be completed to ensure that the ovaries are without torsion. Patient was given 1 mg of Dilaudid and Zofran on arrival with improvement in symptoms. I have prescribed some Toradol pending pelvic ultrasound. Patient will be signed out to my nighttime colleague Dr. Kelsey to follow-up on the ultrasound results and final disposition. Departure - Departure Clinical Impression: RLQ abdominal pain Diarrhea Qualifiers: Diarrhea type: unspecified type Qualified Code(s): R19.7 - Diarrhea, unspecified
[2020-12-21] MEDS ORDERED: IOVERSOL 320 100 ML VIAL IVP ONE ×2 (19:38→20:19)
[2020-12-21 19:54] LABS: ALBUMIN 5.1 g/dL (3.2-5.5); BILIRUBIN,TOTAL 0.2 mg/dL (0.2-1.0); CALCIUM 9.9 mg/dL (8.5-10.3); CREATININE 0.6 mg/dL (0.4-1.0); POTASSIUM 3.6 mmol/L (3.5-5.0); TOTAL PROTEIN 7.6 g/dL (6.7-8.2)
[2020-12-21 19:55] LABS: BASOPHILS % (AUTO) 0.3 %; EOSINOPHILS # (AUTO) 0.1 10^3/uL (0.0-0.7); EOSINOPHILS % (AUTO) 1.3 %; HCT - HEMATOCRIT 37.2 % (37.0-47.0); HGB - HEMOGLOBIN 12.1 g/dL (12.0-16.0); LYMPHOCYTES # (AUTO) 2.5 10^3/uL (1.5-3.5); LYMPHOCYTES % (AUTO) 31.1 %; MEAN CORPUSCULAR HEMOGLOBIN 30.5 pg (27.0-31.0); MEAN CORPUSCULAR HGB CONC 32.5 g/dL (32.0-36.0); MEAN CORPUSCULAR VOLUME 93.7 fL (81.0-99.0); MONOCYTES # (AUTO) 0.4 10^3/uL (0.0-1.0); MONOCYTES % (AUTO) 5.5 %; NEUTROPHILS # (AUTO) 4.9 10^3/uL (1.5-6.6); NEUTROPHILS % (AUTO) 61.4 %; PLT - PLATELET COUNT 302 10^3/uL (130-450); RED BLOOD COUNT 3.97 10^6/uL (4.20-5.40); RED CELL DISTRIBUTION WIDTH 12.9 % (12.0-15.0); WHITE BLOOD COUNT 7.9 x10^3/uL (4.8-10.8)
[2020-12-21 20:07] LABS: HCG,QUALITATIVE BLOOD NEGATIVE
[2020-12-21 20:19] LABS: BILIRUBIN,URINE NEGATIVE (NEGATIVE); GLUCOSE, URINE (UA) NEGATIVE (NEGATIVE); KETONES,URINE (UA) NEGATIVE (NEGATIVE); LEUKOCYTE ESTERASE, URINE NEGATIVE (NEGATIVE); NITRITE,URINE NEGATIVE (NEGATIVE); OCCULT BLOOD,URINE NEGATIVE (NEGATIVE); PH,URINE 7.5 PH (5.0-7.5); PROTEIN,URINE NEGATIVE (NEGATIVE); UROBILINOGEN,URINE 0.2 (NORMAL) E.U./dL (NORMAL)
[2020-12-21 20:22] LABS: CLARITY,URINE CLEAR (CLEAR); HCG UR QUAL NEGATIVE
--- NOTE | 2020-12-21 21:06 | CT Report ---
PROCEDURE: Abdomen/Pelvis W INDICATIONS: acute RLQ abd pain CONTRAST: IV CONTRAST: Optiray 320 ml: 100 PO CONTRAST: *NO PO CONTRAST TECHNIQUE: After the administration of IV contrast, 5 mm thick sections acquired from the diaphragms to the symp hysis. 5 mm thick coronal and sagittal reformats were acquired. For radiation dose reduction, the f ollowing was used: automated exposure control, adjustment of mA and/or kV according to patient size. COMPARISON: None. FINDINGS: Image quality: Excellent. ABDOMEN: Lung bases: Lung bases are clear. Heart size is normal. Solid organs: Liver and spleen are normal in size and enhancement. Gallbladder is normal. Biliary system is non dilated. Pancreas enhances normally. No adrenal nodules. Kidneys demonstrate normal size and enhancement, without hydronephrosis. Peritoneum and bowel: The stomach contains ingested material. There is mild mucosal hyperemia involv ing the gastric antrum. Small bowel loops are within normal limits. A normal appendix is seen contain ing several foci of gas. Increased quantity of solid stool is present in the right lower quadrant col on. Colon is otherwise normal. No free fluid or air. Nodes and vessels: No retroperitoneal or mesenteric adenopathy by size criteria. Aorta and inferior vena cava are normal in size. Miscellaneous: No ventral hernias. PELVIS: Genitourinary: Bladder wall thickness is normal. The uterus is anteverted. Miscellaneous: No inguinal hernias or adenopathy. Bones: No suspicious bony lesions. No vertebral body compression fractures. IMPRESSION: 1. Normal appendix. 2. Changes of mild gastritis. Reviewed by: Nay Flynn MD on 12/21/2020 9:05 PM PST Approved by: Nay Flynn MD on 12/21/2020 9:05 PM PST Station ID: [id number]
[2020-12-21] MEDS ORDERED: KETOROLAC 30 MG/ML VIAL IVP STA (21:17)
--- NOTE | 2020-12-21 22:35 | Ultrasound Report ---
PROCEDURE: Pelvic w/Transvag+Doppler Comp INDICATIONS: pelvic pain, R TECHNIQUE: Real-time scanning was performed of the pelvic organs, with image documentation. Additional endovagi nal scanning was necessary due to incomplete visualization of the adnexal and endometrial structures by transabdominal scanning. COMPARISON: None. FINDINGS: No pathologic free abdominal or pelvic fluid. Uterus: The uterus measures 8.4 x 3.3 x 4.6 cm. The uterus is anteverted. Endometrial thickness is 7. 3 mm. No uterine fibroids. The cervix has a normal ultrasound appearance. Ovaries: Both ovaries have a normal size measuring 3.6 x 2.3 x 2.5 cm (11.2 mL) on the right and 3.2 x 2.2 x 2.0 cm (7.2 mL) on the left. The right ovary has 2 cysts, the largest measuring 2.3 x 1.6 x 2.2 cm with a daughter cyst. Adnexa: Small amount of free fluid in the right adnexa and around the right ovary. IMPRESSION: 1. Right ovarian cyst with a small amount of fluid around the right ovary. Possible recently ruptured ovarian cyst. 2. Normal left ovary. 2. Normal uterus. Reviewed by: Dale Thrasher on 12/21/2020 10:34 PM PST Approved by: Dale Thrasher on 12/21/2020 10:34 PM PST Station ID: [id number]
[2020-12-22 00:06] VITALS: BP 119/75
--- NOTE | 2020-12-22 00:32 | ED Physician Documentation ---
ED Addendum - Addendum Addendum: 12/22/20 00:31 Patient endorsed to me by GEORGE Randolph awaiting u/s results. U/s shows good flow to BL ovaries. R ovarian cyst and R sided pelvic fluid symptomatic of possible ovarian cyst rupture. No evidence of torsion. Plan to dc home with return precautions and outpatient f/u. Dispo Home condition good Impression 1. abdominal pain 2. ovarian cyst 3. diarrhea
== END 2020-12-22 01:02 | disposition home or self-care (01) ==
LOC: ED 19:09
DX: R10.31 Right lower quadrant pain (principal); N83.201 Unspecified ovarian cyst, right side; R19.7 Diarrhea, unspecified
CPT/HCPCS: 36415; 74177; 76830; 76856; 80053; 81003; 81025; 83690; 84703; 85025; 93975; 96374; 96375; 96376; 99282; 99284; J1170; Q9967; 81001; 87086

== ENCOUNTER 2020-12-23 14:20 | Emergency (ER) | payer MEDICAID ==
[2020-12-23 14:58] LABS: BILIRUBIN,URINE NEGATIVE (NEGATIVE); GLUCOSE, URINE (UA) NEGATIVE (NEGATIVE); KETONES,URINE (UA) NEGATIVE (NEGATIVE); LEUKOCYTE ESTERASE, URINE NEGATIVE (NEGATIVE); NITRITE,URINE NEGATIVE (NEGATIVE); OCCULT BLOOD,URINE MODERATE (NEGATIVE); PH,URINE 7.5 PH (5.0-7.5); PROTEIN,URINE NEGATIVE (NEGATIVE); UROBILINOGEN,URINE 0.2 (NORMAL) E.U./dL (NORMAL)
[2020-12-23 15:03] LABS: CLARITY,URINE CLEAR (CLEAR)
[2020-12-23] MEDS ORDERED: HYDROmorphone 1 MG/ML CARPUJECT IVP STA (15:03)
[2020-12-23] MEDS ORDERED: KETOROLAC 30 MG/ML VIAL IVP STA (15:03)
[2020-12-23 15:05] LABS: BASOPHILS # (AUTO) 0.1 10^3/uL (0.0-0.1); BASOPHILS % (AUTO) 0.7 %; EOSINOPHILS # (AUTO) 0.1 10^3/uL (0.0-0.7); EOSINOPHILS % (AUTO) 1.1 %; HCT - HEMATOCRIT 37.2 % (37.0-47.0); HGB - HEMOGLOBIN 11.9 g/dL (12.0-16.0); LYMPHOCYTES % (AUTO) 26.9 %; MEAN CORPUSCULAR HEMOGLOBIN 30.3 pg (27.0-31.0); MEAN CORPUSCULAR VOLUME 94.7 fL (81.0-99.0); MEAN PLATELET VOLUME 9.4 fL (7.9-10.8); MONOCYTES # (AUTO) 0.4 10^3/uL (0.0-1.0); MONOCYTES % (AUTO) 5.5 %; NEUTROPHILS # (AUTO) 4.8 10^3/uL (1.5-6.6); NEUTROPHILS % (AUTO) 65.5 %; PLT - PLATELET COUNT 287 10^3/uL (130-450); RED BLOOD COUNT 3.93 10^6/uL (4.20-5.40); WHITE BLOOD COUNT 7.3 x10^3/uL (4.8-10.8)
--- NOTE | 2020-12-23 15:06 | ED Physician Documentation ---
History of Present Illness - Stated complaint Stated Complaint: ABD PX,R SIDE - Chief complaint Chief Complaint: Abd Pain - History obtained from History obtained from: Patient - Additonal information Additional information: Patient comes emergency department chief complaint of right pelvic pain. She states that she was just seen and diagnosed with a right ovarian cyst a few days ago and that she is currently on her period. She states that she was working at her job at [employer] and was about to change a tire, when in hoisting the tire up, she felt a sudden, sharp pain in her right lateral pelvic area. She has noticed a severe sharp pain ever since, but denies any bulging. No nausea or vomiting. No fevers. No dysuria. No surgical history in her pelvis. No other complaints at this time. Review of Systems Ten Systems: 10 systems reviewed and negative Constitutional: reports: Reviewed and negative Eyes: reports: Reviewed and negative Ears: reports: Reviewed and negative Nose: reports: Reviewed and negative Throat: reports: Reviewed and negative Cardiac: reports: Reviewed and negative Respiratory: reports: Reviewed and negative GI: reports: Abdominal Pain : reports: Vaginal bleeding Skin: reports: Reviewed and negative Musculoskeletal: reports: Reviewed and negative Neurologic: reports: Reviewed and negative Psychiatric: reports: Reviewed and negative Endocrine: reports: Reviewed and negative Immunocompromised: reports: Reviewed and negative PD PAST MEDICAL HISTORY - Past Medical History Cardiovascular: None Respiratory: None Neuro: None Endocrine/Autoimmune: None GI: None CONCIERGE: 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 : None HEENT: None Psych: Depression, Anxiety, ADD/ADHD Musculoskeletal: None Derm: None - Past Surgical History Past Surgical History: No - Present Medications Home Medications: Ambulatory Orders Medication Instructions Recorded Confirmed QUEtiapine [SEROquel] 600 mg PO QPM 04/06/20 04/06/20 lamoTRIgine [Lamictal] 300 mg PO 04/06/20 Atomoxetine HCl [Strattera] 25 mg PO DAILY 09/29/20 09/29/20 Banks Carbonate [Banks 450 mg PO QPM 09/29/20 09/29/20 Carbonate ER] Sulfamethox/Trimeth 800/160 1 each PO BID #14 tablet 09/29/20 [Bactrim Ds] predniSONE [Deltasone] 60 mg PO DAILY 5 Days #15 tablet 11/03/20 traMADol [Ultram] 50 mg PO Q4-6H PRN #14 tablet 12/23/20 - Allergies Allergies/Adverse Reactions: Allergies Allergy/AdvReac Type Severity Reaction Status Date / Time Penicillins Allergy Mild Hives Verified 12/23/20 14:29 acetaminophen Allergy Nausea Verified 12/23/20 14:30 - Social History Does the pt smoke?: No Smoking Status: Never smoker Does the pt drink ETOH?: No Does the pt have substance abuse?: Yes - Immunizations Immunizations are current?: No Immunizations: Other immun current - POLST Patient has POLST: No PD ED PE NORMAL - Vitals Vital signs reviewed: Yes - General General: Alert and oriented X 3, Well developed/nourished, Other (Patient is clutching her right lower abdomen, wincing and crying.) - HEENT HEENT: Atraumatic, PERRL, EOMI, Moist mucous membranes - Neck Neck: Supple, no meningeal sign - Cardiac Cardiac: RRR, No murmur - Respiratory Respiratory: No respiratory distress, Clear bilaterally - Abdomen Abdomen: Soft, Non distended, Other (Marked tenderness inferior right lower quadrant and pelvic area, no rebound or guarding. 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, Normal speech, Other (Intact) - Psych Psych: Normal mood, Normal affect Results - Vitals Vitals: Vital Signs - 24 hr 12/23/20 12/23/20 14:25 16:21 Temperature 36.5 C Heart Rate 77 65 Respiratory 16 15 Rate Blood Pressure 136/74 H 129/78 O2 Saturation 99 100 Oxygen O2 Source Room air - Labs Labs: Laboratory Tests 12/23/20 12/23/20 12/23/20 14:47 15:00 15:00 WBC 7.3 RBC 3.93 L Hgb 11.9 L Hct 37.2 MCV 94.7 MCH 30.3 MCHC 32.0 RDW 13.0 Plt Count 287 MPV 9.4 Neut # (Auto) 4.8 Lymph # (Auto) 2.0 Benson # (Auto) 0.4 Eos # (Auto) 0.1 Baso # (Auto) 0.1 Absolute Nucleated RBC 0.00 Nucleated RBC % 0.0 Sodium 134 L Potassium 4.0 Chloride 102 Carbon Dioxide 26 Anion Gap 6.0 BUN 10 Creatinine 0.7 Estimated GFR (MDRD) 102 Glucose 91 Calcium 9.0 Total Bilirubin 0.4 AST 20 ALT 13 Alkaline Phosphatase 38 L Total Protein 6.7 Albumin 4.5 Globulin 2.2 Albumin/Globulin Ratio 2.0 Lipase 33 Urine Color YELLOW Urine Clarity CLEAR Urine pH 7.5 Ur Specific [place] 1.015 Urine Protein NEGATIVE Urine Glucose (UA) NEGATIVE Urine Ketones NEGATIVE Urine Occult Blood MODERATE H Urine Nitrite NEGATIVE Urine Bilirubin NEGATIVE Urine Urobilinogen 0.2 (NORMAL) Ur Leukocyte Esterase NEGATIVE Urine RBC 0-5 Urine WBC 4-5 Ur Squamous Epith Cells FEW Squamous Urine Bacteria Rare Ur Microscopic Review INDICATED Urine Culture Comments NOT INDICATED - Rads (name of study) us pelvis Radiology: Prelim report reviewed (No torsion. Small right ovarian cyst. Mild amount of free fluid in pelvis.) PD MEDICAL DECISION MAKING - ED course Complexity details: reviewed results, re-evaluated patient, considered differential, d/w patient ED course: Patient was treated symptomatically with IV Toradol and a dose of Dilaudid and w orked up with a pelvic ultrasoundWhich showed no torsion. Patient was feeling better after symptomatic treatment I felt she was stable for discharge home. We have discussed she may be on the early end of development of a hernia, given her chronic heavy lifting at work. We have discussed pelvic rest and avoiding any heavy lifting or other activities that cause strain to the area. Departure - Departure Disposition: 01 Home, Self Care Clinical Impression: Strain of muscle of pelvis Ovarian cyst Qualifiers: Laterality: right Qualified Code(s): N83.201 - Unspecified ovarian cyst, right side Condition: Stable Instructions: ED Strain Groin, ED Strain Abdominal Muscle Prescriptions: traMADol [Ultram] 50 mg PO Q4-6H PRN #14 tablet PRN Reason: Pain Comments: Your ultrasound does not show any evidence of an emergent complication of your ovarian cyst. You still have one small cyst on the ovary, and fluid in your pelvis indicating the rupture of the other one. There is no evidence of a twisting of the ovary on its stalk, which would be the most emergent potential cause of your pain. Most likely, in lifting the tire at work, you strained the muscles and connecting structures in your pelvis. You may take ibuprofen and the pain medication prescribed to help with your symptoms. Please avoid any heavy lifting or other strenuous activities involving the area of your body. If you are not feeling better in a week, please follow-up with your primary care physician. Discharge Date/Time: 12/23/20 16:55
[2020-12-23 15:23] LABS: ALBUMIN 4.5 g/dL (3.2-5.5); BILIRUBIN,TOTAL 0.4 mg/dL (0.2-1.0); CREATININE 0.7 mg/dL (0.4-1.0); TOTAL PROTEIN 6.7 g/dL (6.7-8.2)
[2020-12-23 15:30] LABS: BACTERIA,URINE Rare /HPF (None Seen); RBC,URINE 0-5 /HPF (0-5); SQUAMOUS EPITHELIAL CELL,UR FEW Squamous (<= Few)
[2020-12-23 16:22] VITALS: BP 129/78
--- NOTE | 2020-12-23 17:20 | Ultrasound Report ---
PROCEDURE: Pelvic w/Transvag+Doppler Comp INDICATIONS: pelvic pain, R TECHNIQUE: Real-time scanning was performed of the pelvic organs, with image documentation. Additional endovagi nal scanning was necessary due to incomplete visualization of the adnexal and endometrial structures by transabdominal scanning. COMPARISON: None. FINDINGS: Small amount of free fluid in the pelvis. Uterus: Uterus is anteverted and normal in size at 8.5 x 4.7 x 3.5 cm. No fibroids seen. Homogeneou s. The endometrium measures 0.4 mm in combined thickness. Ovaries: Blood flow seen in both ovaries. Right ovary measures 4.5 x 2.8 x 2.6 cm, volume of 17 cc. -Right ovarian cyst measuring 2.4 x 2.1 x 1.6 cm, (previously 2.3 x 2.3 x 1.6 cm). Cyst is anechoic w ith a trace debris. Small daughter cyst. Left ovary measures 3.4 x 1.9 x 1.8 cm, volume of 6 cc. IMPRESSION: 1. Small anechoic right ovarian cyst measuring 2.4 cm with a daughter cyst. 2. Similar small amount of free fluid in the pelvis. 3. Normal sonographic appearance of the uterus and endometrium. Reviewed by: Gee Thomason MD on 12/23/2020 5:18 PM PST Approved by: Gee Thomason MD on 12/23/2020 5:18 PM PST Station ID: [id number]
== END 2020-12-23 16:55 | disposition home or self-care (01) ==
LOC: ED 14:20
DX: S39.013A Strain of muscle, fascia and tendon of pelvis, initial encounter (principal); N83.201 Unspecified ovarian cyst, right side; X50.0XXA Overexertion from strenuous movement or load, initial encounter; Y93.89 Activity, other specified; Y92.89 Other specified places as the place of occurrence of the external cause; Y99.0 Civilian activity done for income or pay
CPT/HCPCS: 36415; 76830; 76856; 80053; 81001; 83690; 85025; 93975; 96374; 96375; 99284; J1170; 81003; 87086

== ENCOUNTER 2021-03-06 17:47 | Emergency (ER) | payer MEDICAID ==
[2021-03-06 17:56] VITALS: BP 117/75
[2021-03-06] MEDS ORDERED: IBUPROFEN 600 MG TABLET PO STA (18:05)
--- NOTE | 2021-03-06 18:06 | ED Physician Documentation ---
PD HPI UPPER EXT INJURY - Stated complaint Stated Complaint: SWOLLEN R BIG TOE - Chief complaint Chief Complaint: Ext Problem - History obtained from History obtained from: Patient - History of Present Illness Location: Right (Medial right foot and great toe. She feels like there is a deformity. 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 : None HEENT: None Psych: Depression, Anxiety, ADD/ADHD Musculoskeletal: None Derm: None - Past Surgical History Past Surgical History: No - Present Medications Home Medications: Ambulatory Orders Medication Instructions Recorded Confirmed QUEtiapine [SEROquel] 600 mg PO QPM 04/06/20 04/06/20 lamoTRIgine [Lamictal] 300 mg PO 04/06/20 Atomoxetine HCl [Strattera] 25 mg PO DAILY 09/29/20 09/29/20 Marvel Carbonate [Marvel 450 mg PO QPM 09/29/20 09/29/20 Carbonate ER] Sulfamethox/Trimeth 800/160 1 each PO BID #14 tablet 09/29/20 [Bactrim Ds] predniSONE [Deltasone] 60 mg PO DAILY 5 Days #15 tablet 11/03/20 traMADol [Ultram] 50 mg PO Q4-6H PRN #14 tablet 12/23/20 - Allergies Allergies/Adverse Reactions: Allergies Allergy/AdvReac Type Severity Reaction Status Date / Time Penicillins Allergy Mild Hives Verified 03/06/21 17:56 acetaminophen Allergy Nausea Verified 03/06/21 17:56 - Social History Does the pt smoke?: No Smoking Status: Never smoker Does the pt drink ETOH?: No Does the pt have substance abuse?: Yes - Immunizations Immunizations are current?: No Immunizations: Other immun current - POLST Patient has POLST: No PD ED PE NORMAL - Vitals Vital signs reviewed: Yes - General General: Alert and oriented X 3, No acute distress - Extremities Extremities: Other (Tender around the first MTP and proximal phalanx of the right great toe without obvious deformity. MVI in all the digits. Proximal foot is nontender.) - Neuro Neuro: Alert and oriented X 3, Normal speech Results - Vitals Vitals: Vital Signs - 24 hr 03/06/21 17:54 Temperature 37.1 C Heart Rate 121 H Respiratory 18 Rate Blood Pressure 117/75 O2 Saturation 100 Oxygen O2 Source Room air - Rads (name of study) Right foot x-ray Radiology: EMP read contemporaneously (Hallux valgus with STS without acute fracture) Departure - Departure Disposition: 01 Home, Self Care Clinical Impression: Sprain of right great toe Qualifiers: Encounter type: initial encounter Qualified Code(s): S93.501A - Unspecified sprain of right great toe, initial encounter Condition: Good Record reviewed to determine appropriate education?: Yes Instructions: ED Sprain Toe Comments: If you are having persistent pain in a week or 2, follow-up with your primary care physician for consideration for repeat x-rays. You can take ibuprofen as needed for pain. Return for new or worsening symptoms. If it makes you feel better you can either wear tight fitting shoes or tape your toes together, not too tight, for comfort.
--- NOTE | 2021-03-06 18:49 | XRAY Report ---
PROCEDURE: Foot 3 View RT INDICATIONS: foot injury TECHNIQUE: 3 views of the foot were acquired. COMPARISON: None FINDINGS: Bones: No acute fracture or dislocation. There is mild hallux valgus and granulation the right great toe with moderate overlying soft tissue swelling centered at the first metatarsophalangeal joint. No suspicious bony lesions. Soft tissues: No tibiotalar joint effusion. Achilles tendon appears normal. IMPRESSION: Mild hallux valgus attenuation the right great toe with moderate soft tissue swelling centered at the first metatarsophalangeal joint. No acute fracture seen. No dislocation. If there is persistent clinical concern for a radiographically occult fracture, recommend immobilizat ion and repeat imaging in 10 to 14 days. Reviewed by: Mac Hernadez MD on 03/06/2021 6:48 PM PST Approved by: Mac Hernadez MD on 03/06/2021 6:48 PM PST Station ID: [id number]
== END 2021-03-06 19:00 | disposition home or self-care (01) ==
LOC: ED 17:47
DX: S93.501A Unspecified sprain of right great toe, initial encounter (principal); W18.40XA Slipping, tripping and stumbling without falling, unspecified, initial encounter; Y93.89 Activity, other specified; Y92.821 Forest as the place of occurrence of the external cause
CPT/HCPCS: 73630; 99282; 99283; A9270

== ENCOUNTER 2021-05-23 18:42 | Emergency (ER) | payer OTHER, MEDICAID ==
[2021-05-23 18:51] VITALS: BP 129/77
[2021-05-23] MEDS ORDERED: HYDROcod/ACETAM 5/325 MG TABLET PO STA (19:00)
--- NOTE | 2021-05-23 19:01 | ED Physician Documentation ---
PD HPI UPPER EXT INJURY - Stated complaint Stated Complaint: L THUMB INJ - Chief complaint Chief Complaint: Trauma Ext - History obtained from History obtained from: Patient (Ambidextrous young woman who is up-to-date on tetanus was working on her own car using a hammer and hit her left thumb with a hammer and has moderate pain of the IP joint of the left thumb with painful range of motion. 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 : None HEENT: None Psych: Depression, Anxiety, ADD/ADHD Musculoskeletal: None Derm: None - Past Surgical History Past Surgical History: No - Present Medications Home Medications: Ambulatory Orders Medication Instructions Recorded Confirmed QUEtiapine [SEROquel] 600 mg PO QPM 04/06/20 05/23/21 lamoTRIgine [Lamictal] 300 mg PO DAILY 04/06/20 05/23/21 Jellico Carbonate [Jellico 450 mg PO QPM 09/29/20 05/23/21 Carbonate ER] Dextroamphetamine/Amphetamine 20 mg PO DAILY 05/23/21 05/23/21 [Adderall 20 mg Tablet] HYDROcod/ACETAM 5/325 [Greer 5/325] 1 - 2 tab PO Q6H PRN #15 tablet 05/23/21 LORazepam [Ativan] 1 mg PO DAILY PRN 05/23/21 05/23/21 - Allergies Allergies/Adverse Reactions: Allergies Allergy/AdvReac Type Severity Reaction Status Date / Time Penicillins Allergy Mild Hives Verified 05/23/21 18:50 - Social History Does the pt smoke?: No Smoking Status: Never smoker Does the pt drink ETOH?: No Does the pt have substance abuse?: Yes - Immunizations Immunizations are current?: No Immunizations: Other immun current - POLST Patient has POLST: No PD ED PE NORMAL - Vitals Vital signs reviewed: Yes - General General: Alert and oriented X 3, No acute distress - Extremities Extremities: Other (Tender at the IP joint of the left thumb with limited range of motion due to pain. N at the tip. There is a shallow laceration on the posterolateral part of the thumb that does not require suturing.) - Neuro Neuro: Alert and oriented X 3, Normal speech Results - Vitals Vitals: Vital Signs - 24 hr 05/23/21 05/23/21 18:45 19:14 Temperature 36.5 C Heart Rate 78 70 Respiratory 16 14 Rate Blood Pressure 129/77 O2 Saturation 100 Oxygen O2 Source Room air PD MEDICAL DECISION MAKING - ED course ED course: 26-year-old woman presents with a crush injury of the left thumb with associated shallow laceration that does not require specific repair. It was scrubbed and irrigated at bedside. She declined a digital block. She also declined a work note. Placed in a bulky dressing for comfort. X-ray demonstrates no fracture. I am prescribing a short course of short-acting opioid pain medication for this patient. I have reviewed the patients STOCK BROKER and no concerning findings were noted. I have discussed that the opioids are for short term therapy only, and will not be refilled from the ED. Departure - Departure Disposition: 01 Home, Self Care Clinical Impression: Crushed finger Qualifiers: Encounter type: initial encounter Qualified Code(s): S67.10XA - Crushing injury of unspecified finger(s), initial encounter Condition: Good Instructions: ED Crush Injury Finger No Fx Prescriptions: HYDROcod/ACETAM 5/325 [Greer 5/325] 1 - 2 tab PO Q6H PRN #15 tablet PRN Reason: Pain Comments: I sent your prescription electronically to [facility] in [place]. You keep the current dressing on, and after removal in a day or so wash with soap and water and then keep it covered with a Band-Aid. Return for new or worsening symptoms. Follow-up with your doctor in a week for recheck. I am prescribing a short course of narcotic pain medication for you. These are potentially dangerous and addictive medications that should be used carefully. These medications may constipate you. Take an opsf-ndi-qawzyau stool softener (docusate) twice daily with plenty of water while taking these medications. If you go 24 hours without a bowel movement, take [id number] miralax, per package instructions. Do not drink or drive while taking these medications. If you received narcotic or sedating medications while in the emergency department, do not drive for 24 hours. Store this medication in a safe, secure place and out of reach of children. It is a violation of federal law to give or sell this medication to another person or to use in a manner other than prescribed. The ED will not refill narcotic prescriptions, including prescriptions lost or stolen. To dispose of unwanted medications: 1. [facility] at [address] in [place] has a medication drop box. They accept prescription medications (in pill form) Wednesday through Wednesday 9:00 a.m. to 5:00 p.m. 2. [facility] [employer] [place] [facility] accepts prescription medications (in pill form only) for disposal year round. Call for more informa tion. 3. Contact the [facility] for the next [facility] sponsored prescription drug collection event. , [phone], or [phone]; Note that many narcotic pain relievers also contain Tylenol/acetaminophen. Please ensure that your total dose of acetaminophen from all sources does not exceed 3 g (3000 mg) per day.
--- NOTE | 2021-05-23 19:56 | XRAY Report ---
PROCEDURE: Finger(s) LT INDICATIONS: Left thumb injury TECHNIQUE: AP hand, 2 views of the first finger(s) acquired. COMPARISON: May 10, 2019. FINDINGS: BONES: No acute, displaced fracture or dislocation. The carpal bones are normally aligned. SOFT TISSUES: No focal abnormality. IMPRESSION: 1.No acute osseous abnormality. Reviewed by: Segun Timmons MD on 05/23/2021 7:55 PM PDT Approved by: Segun Timmons MD on 05/23/2021 7:55 PM PDT Station ID: [id number]
== END 2021-05-23 19:24 | disposition home or self-care (01) ==
LOC: ED 18:42
DX: S61.012A Laceration without foreign body of left thumb without damage to nail, initial encounter (principal); W20.8XXA Other cause of strike by thrown, projected or falling object, initial encounter; Y93.89 Activity, other specified
CPT/HCPCS: 73140; 99282; 99283; A9270

== ENCOUNTER 2021-05-29 22:51 | Outpatient (CLI) | payer OTHER, MEDICAID | END 2021-05-29 22:52 | disposition critical access hospital (66) | LOC: EMS 22:51 | DX: R42 Dizziness and giddiness (principal); R11.0 Nausea; R00.0 Tachycardia, unspecified; R53.83 Other fatigue | CPT/HCPCS: A0425; A0427 ==

== ENCOUNTER 2021-05-29 23:10 | Emergency (ER) | payer OTHER, MEDICAID ==
[2021-05-30] MEDS: SODIUM CHLORIDE 0.9% 1,000 ML IV STA (00:45)
[2021-05-30 01:00] LABS: BASOPHILS % (AUTO) 0.3 %; EOSINOPHILS # (AUTO) 0.1 10^3/uL (0.0-0.7); EOSINOPHILS % (AUTO) 0.7 %; HCT - HEMATOCRIT 36.5 % (37.0-47.0); HGB - HEMOGLOBIN 12.1 g/dL (12.0-16.0); LYMPHOCYTES # (AUTO) 1.7 10^3/uL (1.5-3.5); LYMPHOCYTES % (AUTO) 16.8 %; MEAN CORPUSCULAR HEMOGLOBIN 30.4 pg (27.0-31.0); MEAN CORPUSCULAR HGB CONC 33.2 g/dL (32.0-36.0); MEAN CORPUSCULAR VOLUME 91.7 fL (81.0-99.0); MEAN PLATELET VOLUME 9.4 fL (7.9-10.8); MONOCYTES # (AUTO) 0.7 10^3/uL (0.0-1.0); MONOCYTES % (AUTO) 7.5 %; NEUTROPHILS # (AUTO) 7.4 10^3/uL (1.5-6.6); NEUTROPHILS % (AUTO) 74.4 %; PLT - PLATELET COUNT 279 10^3/uL (130-450); RED BLOOD COUNT 3.98 10^6/uL (4.20-5.40); RED CELL DISTRIBUTION WIDTH 12.4 % (12.0-15.0); WHITE BLOOD COUNT 9.9 x10^3/uL (4.8-10.8)
[2021-05-30 01:08] LABS: ALBUMIN 4.4 g/dL (3.2-5.5); ALBUMIN/GLOBULIN RATIO 1.8 (1.0-2.2); BILIRUBIN,TOTAL 0.5 mg/dL (0.2-1.0); CALCIUM 8.8 mg/dL (8.5-10.3); CREATININE 0.6 mg/dL (0.4-1.0); POTASSIUM 3.3 mmol/L (3.5-5.0); TOTAL PROTEIN 6.9 g/dL (6.7-8.2)
[2021-05-30 01:30] LABS: LITHIUM 0.28 mmol/L
[2021-05-30] MEDS: POTASSIUM CHLORIDE 20 MEQ TABLET PO STA (02:50)
[2021-05-30 02:57] VITALS: BP 112/63
--- NOTE | 2021-05-31 18:24 | ED Physician Documentation ---
PD HPI ALTERED MENTAL STATUS - Stated complaint Stated Complaint: NAUSEA, DIZZY, PIERSON - Chief complaint Chief Complaint: General - History obtained from History obtained from: Patient, EMS - History of Present Illness Timing - onset: Today (tonight, unknown regarding specific time of symptom onset) Quality / character: Less responsive Associated symptoms: NVD (nausea). No: Fever Basline status: Alert and oriented X 3, Ambulatory, Independent Similar symptoms before: Has not had sx before Recently seen: Not recently seen - Additional information Additional information: 25th [facility] ED visit since 2016. BIBA for AMS. Patient was T+R from this ED few days ago for left thumb injury which, per patient on my HPI, is not a contributing factor to tonights ED presentation. Patient tells me she thinks she took her night meds earlier than usual and she thinks taking her meds too close together (per patient) caused her to to become drowsy, with dizziness and nausea. She denies taking any more medications than as prescribed and strongly denies any SI. She also took hydrocodone (as prescribed) for the left thumb pain due to her recent injury, as well as ingested THC. She says the amount of THC she ingested is actually a small amount compared to how much she typically takes. Received zofran en route by EMS. Review of Systems Constitutional: denies: Fever Eyes: denies: Loss of vision, Decreased vision Cardiac: reports: Reviewed and negative Respiratory: reports: Reviewed and negative GI: reports: Nausea. denies: Abdominal Pain, Vomiting : denies: Now EGA Neurologic: reports: Altered mental status. 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 : None HEENT: None Psych: Depression, Anxiety, ADD/ADHD Musculoskeletal: None Derm: None - Past Surgical History Past Surgical History: No - Present Medications Home Medications: Ambulatory Orders Medication Instructions Recorded Confirmed QUEtiapine [SEROquel] 600 mg PO QPM 04/06/20 05/23/21 lamoTRIgine [Lamictal] 300 mg PO DAILY 04/06/20 05/23/21 [place] Carbonate [[place] 450 mg PO QPM 09/29/20 05/23/21 Carbonate ER] Dextroamphetamine/Amphetamine 20 mg PO DAILY 05/23/21 05/23/21 [Adderall 20 mg Tablet] HYDROcod/ACETAM 5/325 [[place] 5/325] 1 - 2 tab PO Q6H PRN #15 tablet 05/23/21 LORazepam [Ativan] 1 mg PO DAILY PRN 05/23/21 05/23/21 - Allergies Allergies/Adverse Reactions: Allergies Allergy/AdvReac Type Severity Reaction Status Date / Time Penicillins Allergy Mild Hives Verified 05/23/21 18:50 - Social History Does the pt smoke?: No Smoking Status: Never smoker Does the pt drink ETOH?: No Does the pt have substance abuse?: Yes - Immunizations Immunizations are current?: No Immunizations: Other immun current - POLST Patient has POLST: No PD ED PE NORMAL - Vitals Vital signs reviewed: Yes - General General: No acute distress, Well developed/nourished, Other (drowsy, falls asleep several times during exam, needs repeated prompting to follow some commands) - HEENT HEENT: Atraumatic, PERRL, EOMI, Moist mucous membranes, Other (2-3 beats nystagmus bilateral horizontal gaze) - Cardiac Cardiac: RRR, No murmur - Respiratory Respiratory: No respiratory distress, Clear bilaterally - Abdomen Abdomen: Normal bowel sounds, Soft, Non tender - Derm Derm: Normal color, Warm and dry - Neuro Neuro: Alert and oriented X 3, 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, No motor deficit, No sensory deficit, Other (speech is slightly slurred) Eye Opening: To Voice Motor: Obeys Commands Verbal: Oriented GCS Score: 14 Results - Vitals Vitals: Oxygen O2 Source Room air - Labs Labs: Laboratory Tests 05/30/21 05/30/21 05/30/21 00:50 00:50 00:50 WBC 9.9 RBC 3.98 L Hgb 12.1 Hct 36.5 L MCV 91.7 MCH 30.4 MCHC 33.2 RDW 12.4 Plt Count 279 MPV 9.4 Neut # (Auto) 7.4 H Lymph # (Auto) 1.7 [place] # (Auto) 0.7 Eos # (Auto) 0.1 Baso # (Auto) 0.0 Absolute Nucleated RBC 0.00 Nucleated RBC % 0.0 Sodium 135 Potassium 3.3 L Chloride 102 Carbon Dioxide 24 Anion Gap 9.0 BUN 12 Creatinine 0.6 Estimated GFR (MDRD) 121 Glucose 100 Calcium 8.8 Total Bilirubin 0.5 AST 19 ALT 12 Alkaline Phosphatase 34 L Total Protein 6.9 Albumin 4.4 Globulin 2.5 Albumin/Globulin Ratio 1.8 Lipase 44 Dose 450 Last Dose Date 05/29/21 Last Dose Time 2100 [place] 0.28 PD MEDICAL DECISION MAKING - ED course Complexity details: reviewed old records, reviewed results, re-evaluated patient, considered differential, d/w patient ED course: presents drowsy with slightly slurred speech, nausea. She says she thinks she just took her evening/night meds too early and she figures the proximity to medications she took early in the day (as prescribed) is why she is so drowsy. She strongly denies overdose, denies any suicidal thought or intent. She says she ingested 250mg THC but says this is actually a smaller dose than what she typically consumes. Her blood tests are without concerning results. She has mild hypokalemia and is given 20meq KCL PO for this. Her lithium level is subtherapeutic, but she says her doctor is considering increasing the dose (so this is, perhaps, already being addressed). On reevaluation, she is much more awake and alert, conversant and appropriate. She again says she has no alternative explanation as to why she was so drowsy except for what she has been saying about taking her meds too early. This seems unlikely to be a reasonable explanation but could be a contributing factor; likely multi-factorial including the THC use, hydrocodone use. No evidence on H+P nor test results to suggest other, more concerning process such as infectious cause, head injury, or significant overdose. She is AAOx3 at time of discharge; return precautions discussed after test results reviewed. Departure - Departure Disposition: 01 Home, Self Care Clinical Impression: Hypokalemia Altered mental status Qualifiers: Altered mental status type: unspecified Qualified Code(s): R41.82 - Altered mental status, unspecified Condition: Good Instructions: ED Altered Loc, ED Potassium Deficiency Discharge Date/Time: 05/30/21 03:01
== END 2021-05-30 03:01 | disposition home or self-care (01) ==
LOC: EDUNIT# → ED 23:10
DX: R41.82 Altered mental status, unspecified (principal); E87.6 Hypokalemia
CPT/HCPCS: 36415; 80053; 80178; 83690; 85025; 96360; 96361; 99283; A9270

== ENCOUNTER 2022-05-30 12:54 | Emergency (ER) | payer OTHER ==
[2022-05-30 13:08] VITALS: BP 140/80
[2022-05-30] MEDS ORDERED: IBUPROFEN 800 MG TABLET PO STA (13:40)
--- NOTE | 2022-05-30 13:45 | ED Physician Documentation ---
PD HPI UPPER EXT INJURY - Stated complaint Stated Complaint: RT HAND INJ - Chief complaint Chief Complaint: Trauma Ext - History obtained from History obtained from: Patient - History of Present Illness Location: Right, Finger (5th finger) Pain level max: 8 Pain level now: 7 Improved by: Rest, Ice, Immobilization Worsened by: Moving, Palpating Associated symptoms: Swelling - Additonal information Additional information: Patient is a 27-year-old female who presents to the emergency department with a right fifth digit injury. She was at work today when her right fifth digit was smashed underneath a tire iron. She now has pain with movement. She states that there is swelling. No numbness or tingling. Worse with movement, better with rest. Denies any possibility of . 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 HEENT: None Psych: Depression, Anxiety, ADD/ADHD Musculoskeletal: None Derm: None - Past Surgical History Past Surgical History: No - Present Medications Home Medications: Ambulatory Orders Medication Instructions Recorded Confirmed QUEtiapine [SEROquel] 600 mg PO QPM 04/06/20 05/23/21 lamoTRIgine [Lamictal] 300 mg PO DAILY 04/06/20 05/23/21 [place] Carbonate [[place] 450 mg PO QPM 09/29/20 05/23/21 Carbonate ER] Dextroamphetamine/Amphetamine 20 mg PO DAILY 05/23/21 05/23/21 [Adderall 20 mg Tablet] HYDROcod/ACETAM 5/325 [[place] 5/325] 1 - 2 tab PO Q6H PRN #15 tablet 05/23/21 LORazepam [Ativan] 1 mg PO DAILY PRN 05/23/21 05/23/21 - Allergies Allergies/Adverse Reactions: Allergies Allergy/AdvReac Type Severity Reaction Status Date / Time Penicillins Allergy Mild Hives Verified 05/30/22 13:06 - Social History Does the pt smoke?: No Smoking Status: Never smoker Does the pt drink ETOH?: No Does the pt have substance abuse?: Yes - Immunizations Immunizations are current?: No Immunizations: Other immun current - POLST Patient has POLST: No PD ED PE NORMAL - Vitals Vital signs reviewed: Yes - General General: Alert and oriented X 3, No acute distress - HEENT HEENT: Moist mucous membranes - Derm Derm: Warm and dry - Extremities Extremities: Other (R hand - Tender to palpation diffusely along the dorsum of the right fifth digit. Mild swelling. No ecchymosis. No deformity. No subungual hematoma. Neurovascularly intact. Patient does have full range of motion, but with pain.) - Neuro Neuro: Alert and oriented X 3 - Psych Psych: Normal mood, Normal affect Results - Vitals Vitals: Vital Signs - 24 hr 05/30/22 13:06 Temperature 36.5 C Heart Rate 88 Respiratory 16 Rate Blood Pressure 140/80 H O2 Saturation 99 Oxygen O2 Source Room air - Rads (name of study) Right finger x-ray Relevant Findings:: Final report received, See rad report Right hand x-ray Relevant Findings:: Final report received, See rad report PD Medical Decision Making - ED course Complexity details: reviewed results, re-evaluated patient, considered differential, d/w patient ED course: No acute findings on x-ray. Patient with a sprain/crushed finger. Placed in a finger splint for comfort. Given Motrin here. Can utilize Motrin and Tylenol at home as needed for pain. Patient counseled regarding signs and symptoms for which I believe and urgent re-evaluation would be necessary. Patient with good understanding of and agreement to plan and is comfortable going home at this time This document was made in part using voice recognition software. While efforts are made to proofread this document, sound alike and grammatical errors may occur. Departure - Departure Disposition: 01 Home, Self Care Clinical Impression: Sprain of finger, right Qualifiers: Encounter type: initial encounter Finger: little finger Sprain of finger site: unspecified site Qualified Code(s): S63.616A - Unspecified sprain of right little finger, initial encounter Crushed finger Qualifiers: Encounter type: initial encounter Qualified Code(s): S67.10XA - Crushing injury of unspecified finger(s), initial encounter Condition: Good Instructions: ED Sprain Finger Follow-Up: your,doctor in 1 week [Other] Comments: Your x-rays did not show any acute abnormalities today. Please follow-up with your doctor for further care. Please return if you worsen. Wear the splint as needed for comfort. Forms: Activity restrictions Discharge Date/Time: 05/30/22 13:56
--- NOTE | 2022-05-30 13:55 | XRAY Report ---
PROCEDURE: Finger(s) RT INDICATIONS: Trauma TECHNIQUE: AP hand, 3 views of the fifth finger(s) acquired. COMPARISON: None. FINDINGS: Bones: No fractures or dislocations. No suspicious bony lesions. Soft tissues: No suspicious soft tissue calcifications or masses. IMPRESSION: Normal fifth finger radiographs Reviewed by: Jose F Mendez MD on 05/30/2022 12:54 PM AKDT Approved by: Jose F Mendez MD on 05/30/2022 12:54 PM AKDT Station ID: [id number]
--- NOTE | 2022-05-30 13:56 | XRAY Report ---
PROCEDURE: Hand 3 View RT INDICATIONS: Trauma TECHNIQUE: 3 views of the hand(s) acquired. COMPARISON: None. FINDINGS: Bones: No fractures or dislocations. No suspicious bony lesions. Soft tissues: No suspicious soft tissue calcifications or masses. IMPRESSION: No acute bony abnormality. Reviewed by: Jose F Mendez MD on 05/30/2022 12:54 PM AKDT Approved by: Jose F Mendez MD on 05/30/2022 12:54 PM AKDT Station ID: [id number]
== END 2022-05-30 13:56 | disposition home or self-care (01) ==
LOC: ED 12:54
DX: S67.196A Crushing injury of right little finger, initial encounter (principal); S63.616A Unspecified sprain of right little finger, initial encounter; X58.XXXA Exposure to other specified factors, initial encounter; Y93.89 Activity, other specified; Y92.89 Other specified places as the place of occurrence of the external cause; Y99.0 Civilian activity done for income or pay
CPT/HCPCS: 73130; 73140; 99283; A9270

== ENCOUNTER 2022-07-13 12:58 | Emergency (ER) | payer MEDICAID, OTHER ==
[2022-07-13] MEDS ORDERED: IPRATROPIUM/ALBUTEROL 3 ML NEB INH STA (13:23)
--- NOTE | 2022-07-13 13:32 | ED Physician Documentation ---
PD HPI URI - Stated complaint Stated Complaint: SOA - Chief complaint Chief Complaint: Resp - History obtained from History obtained from: Patient - History of Present Illness Timing - onset: How many days ago (4) Timing duration: Days Timing details: Gradual onset Pain level max: 0 Pain level now: 0 Associated symptoms: Nasal congestion, Rhinorrhea. No: Chills, Hemoptysis, Chest pain, NVD Contributing factors: Sick contact Improves by: Rest Worsened by: Activity, Breathing Recently seen: Not recently seen - Additional information Additional information: Patient is a 27-year-old female who presents to the emergency department complaining of cough, congestion, sore throat for the past 4 days. Had a fever 4 days ago, none since. She states she feels like her breathing is tight and has wheezing. Has used inhalers in the past but does not have one currently. Denies any possibility of . No pain. She does vape. She states that it feels similar to when she was diagnosed with pneumonia in the past. 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 HEENT: None Psych: Depression, Anxiety, ADD/ADHD Musculoskeletal: None Derm: None - Past Surgical History Past Surgical History: No - Present Medications Home Medications: Ambulatory Orders Medication Instructions Recorded Confirmed QUEtiapine [SEROquel] 600 mg PO QPM 04/06/20 05/23/21 lamoTRIgine [Lamictal] 300 mg PO DAILY 04/06/20 05/23/21 [place] Carbonate [[place] 450 mg PO QPM 09/29/20 05/23/21 Carbonate ER] Dextroamphetamine/Amphetamine 20 mg PO DAILY 05/23/21 05/23/21 [Adderall 20 mg Tablet] HYDROcod/ACETAM 5/325 [[place] 5/325] 1 - 2 tab PO Q6H PRN #15 tablet 05/23/21 LORazepam [Ativan] 1 mg PO DAILY PRN 05/23/21 05/23/21 Albuterol Sulf [Ventolin Hfa 1 - 2 puffs INH Q4HR PRN #1 each 07/13/22 Inhaler] - Allergies Allergies/Adverse Reactions: Allergies Allergy/AdvReac Type Severity Reaction Status Date / Time Penicillins Allergy Mild Hives Verified 07/13/22 13:07 - Social History Does the pt smoke?: No Smoking Status: Never smoker Does the pt drink ETOH?: No Does the pt have substance abuse?: Yes - Immunizations Immunizations are current?: No Immunizations: Other immun current - POLST Patient has POLST: No PD ED PE NORMAL - Vitals Vital signs reviewed: Yes - General General: Alert and oriented X 3, No acute distress, Well developed/nourished - HEENT HEENT: PERRL, Ears normal, Moist mucous membranes, Pharynx benign - Neck Neck: Supple, no meningeal sign - Cardiac Cardiac: RRR, Strong equal pulses - Respiratory Respiratory: No respiratory distress, Other (Mildly diminished breath sounds and wheezing bilaterally) - Abdomen Abdomen: Soft, Non tender, Non distended - Derm Derm: Warm and dry, No rash - Neuro Neuro: Alert and oriented X 3 - Psych Psych: Normal mood, Normal affect Results - Vitals Vitals: Vital Signs - 24 hr 07/13/22 07/13/22 07/13/22 13:04 14:06 15:05 Temperature 36.7 C 36.5 C Heart Rate 74 77 76 Respiratory 24 20 16 Rate Blood Pressure 151/87 H 130/80 O2 Saturation 100 100 Oxygen O2 Source Room air - Rads (name of study) cxr Relevant Findings:: Final report received, See rad report PD Medical Decision Making - ED course Complexity details: reviewed results, re-evaluated patient, considered differential, d/w patient ED course: 27-year-old female with what appears to be a viral URI. Chest x-ray is negative. Patient is well-appearing, nontoxic. Feels much better after nebulizer treatment. Breathing easier, improved aeration. No hypoxia or respiratory distress. Will place on albuterol for home. No evidence of pneumonia, sepsis. Patient counseled regarding signs and symptoms for which I believe and urgent re-evaluation would be necessary. Patient with good understanding of and agreement to plan and is comfortable going home at this time This document was made in part using voice recognition software. While efforts are made to proofread this document, sound alike and grammatical errors may occur. Departure - Departure Disposition: 01 Home, Self Care Clinical Impression: Viral URI Condition: Good Instructions: ED Viral Syndrome Follow-Up: your,doctor in 1 week [Other] - Within 1 week Prescriptions: Albuterol Sulf [Ventolin Hfa Inhaler] 1 - 2 puffs INH Q4HR PRN #1 each PRN Reason: Shortness Of Air/Wheezing Comments: Your prescription was sent to [facility] in [place]. Your x-ray does not show any evidence of pneumonia. Please follow-up with your doctor for further care. Please return if you worsen. Discharge Date/Time: 07/13/22 15:05
--- NOTE | 2022-07-13 14:21 | XRAY Report ---
PROCEDURE: Chest 2 View X-Ray INDICATIONS: cough TECHNIQUE: 2 views of the chest were acquired. COMPARISON: 05/17/2017. FINDINGS: Surgical changes and devices: None. Lungs and pleura: No pleural effusions or pneumothorax. Lungs are clear. Mediastinum: Mediastinal contours appear normal. Heart size is normal. Bones and chest wall: No suspicious bony lesions. Overlying soft tissues appear unremarkable. IMPRESSION: No acute cardiopulmonary process. Reviewed by: Eddie Lake MD on 07/13/2022 2:20 PM PDT Approved by: Eddie Lake MD on 07/13/2022 2:20 PM PDT Station ID: [id number]
[2022-07-13 15:09] VITALS: BP 130/80
== END 2022-07-13 15:05 | disposition home or self-care (01) ==
LOC: ED 12:58
DX: J06.9 Acute upper respiratory infection, unspecified (principal); F17.290 Nicotine dependence, other tobacco product, uncomplicated; Z79.899 Other long term (current) drug therapy
CPT/HCPCS: 94640; 94664; 99283

== ENCOUNTER 2022-12-24 13:22 | Emergency (ER) | payer OTHER ==
[2022-12-24 13:39] VITALS: BP 129/61; O2SAT 98
[2022-12-24 13:55] LABS: BASOPHILS % (AUTO) 0.2 %; EOSINOPHILS # (AUTO) 0.2 10^3/uL (0.0-0.7); EOSINOPHILS % (AUTO) 1.4 %; HCT - HEMATOCRIT 41.7 % (37.0-47.0); HGB - HEMOGLOBIN 13.2 g/dL (12.0-16.0); LYMPHOCYTES # (AUTO) 2.2 10^3/uL (1.5-3.5); LYMPHOCYTES % (AUTO) 19.4 %; MEAN CORPUSCULAR HEMOGLOBIN 28.5 pg (27.0-31.0); MEAN CORPUSCULAR HGB CONC 31.7 g/dL (32.0-36.0); MEAN CORPUSCULAR VOLUME 90.1 fL (81.0-99.0); MEAN PLATELET VOLUME 9.5 fL (7.9-10.8); MONOCYTES # (AUTO) 0.4 10^3/uL (0.0-1.0); NEUTROPHILS # (AUTO) 8.3 10^3/uL (1.5-6.6); NEUTROPHILS % (AUTO) 74.7 %; PLT - PLATELET COUNT 391 10^3/uL (130-450); RED BLOOD COUNT 4.63 10^6/uL (4.20-5.40); RED CELL DISTRIBUTION WIDTH 12.7 % (12.0-15.0); WHITE BLOOD COUNT 11.1 x10^3/uL (4.8-10.8)
[2022-12-24 14:14] LABS: ALBUMIN 4.9 g/dL (3.2-5.5); ALBUMIN/GLOBULIN RATIO 2.3 (1.0-2.2); BILIRUBIN,TOTAL 0.6 mg/dL (0.2-1.0); CALCIUM 9.8 mg/dL (8.5-10.3); CREATININE 0.7 mg/dL (0.6-1.3)
[2022-12-24 14:33] LABS: LITHIUM 0.94 mmol/L
== END 2022-12-24 14:50 | disposition left against medical advice (07) ==
LOC: ED 13:22
DX: Z53.21 Procedure and treatment not carried out due to patient leaving prior to being seen by health care provider (principal)
CPT/HCPCS: 36415; 80053; 80178; 83690; 85025

== ENCOUNTER 2023-04-05 14:17 | Emergency (ER) | payer OTHER ==
--- NOTE | 2023-04-05 14:53 | ED Physician Documentation ---
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 Pain is nonradiating has no numbness tingling or lower extremity symptoms. No loss of bowel or bladder.No urinary symptoms or direct trauma. 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 HEENT: None Psych: Depression, Anxiety, ADD/ADHD Musculoskeletal: None Derm: None - Past Surgical History Past Surgical History: No - Present Medications Home Medications: Ambulatory Orders Medication Instructions Recorded Confirmed QUEtiapine [SEROquel] 600 mg PO QPM 04/06/20 05/23/21 lamoTRIgine [Lamictal] 300 mg PO DAILY 04/06/20 05/23/21 [place] Carbonate [[place] 450 mg PO QPM 09/29/20 05/23/21 Carbonate ER] Dextroamphetamine/Amphetamine 20 mg PO DAILY 05/23/21 05/23/21 [Adderall 20 mg Tablet] HYDROcod/ACETAM 5/325 [[place] 5/325] 1 - 2 tab PO Q6H PRN #15 tablet 05/23/21 LORazepam [Ativan] 1 mg PO DAILY PRN 05/23/21 05/23/21 Albuterol Sulf [Ventolin Hfa 1 - 2 puffs INH Q4HR PRN #1 each 07/13/22 Inhaler] HYDROcod/ACETAM 5/325 [[place] 5/325] 1 - 2 tablet PO Q6H PRN #14 tablet 04/05/23 methocarbamoL [Robaxin] 1,500 mg PO Q6H #20 tablet 04/05/23 - Allergies Allergies/Adverse Reactions: Allergies Allergy/AdvReac Type Severity Reaction Status Date / Time Penicillins Allergy Mild Hives Verified 04/05/23 14:22 - Social History Does the pt smoke?: No Smoking Status: Never smoker Does the pt drink ETOH?: No Does the pt have substance abuse?: Yes - Immunizations Immunizations are current?: No Immunizations: Other immun current - POLST Patient has POLST: No PD ED PE NORMAL - General General: Alert and oriented X 3 - HEENT HEENT: Atraumatic - Neck Neck: Supple, no meningeal sign - Cardiac Cardiac: RRR, No murmur - Respiratory Respiratory: No respiratory distress - Abdomen Abdomen: Normal bowel sounds, Soft - Back Back: No spinal TTP, Other (Paraspinal muscle tenderness bilaterally in the lumbar region) - Neuro Neuro: Alert and oriented X 3, 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 DTRs are 2+ bilaterally she can walk on her toes and her heels. Negative straight leg raise bilaterally.) Results - Vitals Vitals: Vital Signs - 24 hr 04/05/23 14:22 Temperature 36.5 C Heart Rate 88 Respiratory 16 Rate Blood Pressure 140/80 H O2 Saturation 98 Oxygen O2 Source Room air PD Medical Decision Making - ED course Complexity details: considered differential (No indication for plain films or advanced neuroimaging. She is neurologically intact. Will treat with conservative measures including NSAIDs, Robaxin and Vicodin. She was given 1 dose of p.o. analgesia here and an IM shot of Toradol. She will be off work for 1 week. [place]) ED course: Gave p.o. analgesics here. Will have her come off work for 1 week refer to PCP for physical therapy evaluation. Discussed back pain warnings. Departure - Departure Disposition: 01 Home, Self Care Clinical Impression: Lumbar strain Condition: Good Instructions: ED Low Back Pain Injury Follow-Up: [facility] [place] [Provider Group] - Within 1 week Prescriptions: HYDROcod/ACETAM 5/325 [[place] 5/325] 1 - 2 tablet PO Q6H PRN #14 tablet PRN Reason: Pain methocarbamoL [Robaxin] 1,500 mg PO Q6H #20 tablet Comments: Today your exam indicates that you have muscle strain of the low back. There is no need for x-rays or MRI imaging at this time. This should get better with conservative measures such as nonsteroidal anti-inflammatory medication such as ibuprofen ice heat. Will give you a few pain pills and muscle relaxers to make this tolerable in the meantime. Stay home from work for 1 week. Make sure you see your PCP for further evaluation. Physical therapy and/or massage or other conservative measures may be helpful as well.
[2023-04-05] MEDS: KETOROLAC 60 MG/2 ML VIAL IM STA (15:01)
[2023-04-05] MEDS: HYDROcod/ACETAM 5/325 MG TABLET PO STA (15:01)
[2023-04-05 15:39] VITALS: BP 132/67; O2SAT 100
== END 2023-04-05 15:31 | disposition home or self-care (01) ==
LOC: ED 14:17
DX: S39.012A Strain of muscle, fascia and tendon of lower back, initial encounter (principal); X58.XXXA Exposure to other specified factors, initial encounter; Y92.89 Other specified places as the place of occurrence of the external cause; Y99.0 Civilian activity done for income or pay; Z79.899 Other long term (current) drug therapy
CPT/HCPCS: 96372; 99283; A9270

== ENCOUNTER 2023-04-08 15:09 | Emergency (ER) | payer OTHER ==
--- NOTE | 2023-04-08 16:17 | ED Physician Documentation ---
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: None Psych: Depression, Anxiety, ADD/ADHD Musculoskeletal: None Derm: None - Past Surgical History Past Surgical History: No - Present Medications Home Medications: Ambulatory Orders Medication Instructions Recorded Confirmed HYDROcod/ACETAM 5/325 [[place] 5/325] 1 - 2 tablet PO Q6H PRN #14 tablet 04/05/23 04/08/23 methocarbamoL [Robaxin] 1,500 mg PO Q6H #20 tablet 04/05/23 04/08/23 Cariprazine HCl [Vraylar] 3 mg PO DAILY 04/08/23 04/08/23 Lurasidone HCl 60 mg PO DAILY 04/08/23 04/08/23 - Allergies Allergies/Adverse Reactions: Allergies Allergy/AdvReac Type Severity Reaction Status Date / Time Penicillins Allergy Mild Hives Verified 04/08/23 15:21 - Social History Does the pt smoke?: No Smoking Status: Never smoker Does the pt drink ETOH?: No Does the pt have substance abuse?: Yes - Immunizations Immunizations are current?: No Immunizations: Other immun current - POLST Patient has POLST: No Results - Vitals Vitals: Vital Signs - 24 hr 04/08/23 04/08/23 15:11 16:12 Temperature 37.0 C Heart Rate 89 72 Respiratory 17 16 Rate Blood Pressure 133/73 H 129/71 O2 Saturation 99 100 Oxygen O2 Source Room air
[2023-04-08 16:21] VITALS: O2SAT 100
--- NOTE | 2023-04-08 17:09 | ED Physician Documentation ---
History of Present Illness - Stated complaint Stated Complaint: BACK PX,FEMALE - Chief complaint Chief Complaint: Back Pain - Additonal information Additional information: 28-year-old female was here 3 days ago after back injury. 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 She was sent home on muscle relaxers and [place] and has been having a hard time managing her pain since then. Patient says that she has been taking light walks around her neighborhood she has had no incontinence of stool or urine no fevers or chills but says that she is eager to return to work and is very frustrated how long it is taking to recover. PD PAST MEDICAL HISTORY - Past Medical History Cardiovascular: None Respiratory: None Neuro: None Endocrine/Autoimmune: None GI: None SOLE INKER: None : None HEENT: None Psych: Depression, Anxiety, ADD/ADHD Musculoskeletal: None Derm: None - Past Surgical History Past Surgical History: No - Present Medications Home Medications: Ambulatory Orders Medication Instructions Recorded Confirmed HYDROcod/ACETAM 5/325 [[place] 5/325] 1 - 2 tablet PO Q6H PRN #14 tablet 04/05/23 04/08/23 methocarbamoL [Robaxin] 1,500 mg PO Q6H #20 tablet 04/05/23 04/08/23 Cariprazine HCl [Vraylar] 3 mg PO DAILY 04/08/23 04/08/23 Lurasidone HCl 60 mg PO DAILY 04/08/23 04/08/23 Oxycodone HCl/Acetaminophen 1 each PO Q6HR PRN #8 tablet 04/08/23 [Percocet 5-325 mg Tablet] - Allergies Allergies/Adverse Reactions: Allergies Allergy/AdvReac Type Severity Reaction Status Date / Time Penicillins Allergy Mild Hives Verified 04/08/23 15:21 - Social History Does the pt smoke?: No Smoking Status: Never smoker Does the pt drink ETOH?: No Does the pt have substance abuse?: Yes - Immunizations Immunizations are current?: No Immunizations: Other immun current - POLST Patient has POLST: No PD ED PE NORMAL - Vitals Vital signs reviewed: Yes - General General: Alert and oriented X 3, No acute distress, Well developed/nourished - HEENT HEENT: Atraumatic - Neck Neck: No bony TTP - Cardiac Cardiac: RRR - Respiratory Respiratory: No respiratory distress, Clear bilaterally - Psych Psych: Normal mood - Free text exam Free text exam: Neck and back are without deformity, external skin changes, or signs of trauma. Curvature of the cervical, thoracic, and lumbar spine are within normal limits. Bony features of the shoulders and hips are of equal height bilaterally. Posture is upright, gait is smooth, steady, and within normal limits. No tenderness noted on palpation of the spinous processes. Spinous processes are midline. Cervical, thoracic, and lumbar paraspinal muscles are not tender and are without spasm. No discomfort is noted with flexion, extension, and mzlm-ky-lbzm rotation of the cervical spine, full range of motion is noted. Full range of motion including flexion, extension, and avvf-ro-ikrj rotation of the thoracic and lumbar spine are noted and without discomfort. Straight leg raise test is negative bilaterally. Sensation to the upper and lower extremities is normal bilaterally. No clonus is noted. Capacity Planner strength is normal bilaterally. Dorsi/plantar flexion is normal bilaterally. Results - Vitals Vitals: Vital Signs - 24 hr 04/08/23 04/08/23 04/08/23 15:11 16:12 19:31 Temperature 37.0 C Heart Rate 89 72 161 H Respiratory 17 16 17 Rate Blood Pressure 133/73 H 129/71 111/72 O2 Saturation 99 100 100 Oxygen O2 Source Room air - Rads (name of study) Lumbar x-rays Relevant Findings:: Final report received, EMP independent interpretation of test, Other (No acute osseous abnormalities or findings) PD Medical Decision Making - ED course ED course: This patient presents with back pain most consistent with lumbar strain. Diff erential diagnoses includes lumbago versus musculoskeletal spasm / strain versus sciatica. Less likely sciatica as straight leg raise test was negative. No back pain red flags on history or physical. Presentation not consistent with malignancy (lack of history of malignancy, lack of B symptoms), fracture (no trauma, no bony tenderness to palpation), cauda equina (no bowel or urinary incontinence/retention, no saddle anesthesia, no distal weakness), AAA, viscus perforation, osteomyelitis or epidural abscess (no IVDU, vertebral tenderness), renal colic, pyelonephritis (afebrile, no CVAT, no urinary symptoms). Completed x-rays of her lumbar spine given that this is her second visit no acute abnormalities or findings are visualized. I am prescribing a short course of short-acting opioid pain medication for this patient. I have reviewed the patients TOY MAKER and no concerning findings were noted. I have discussed that the opioids are for short term therapy only, and will not be refilled from the ED. patient told to follow-up with primary care provider and ask for physical therapy referral. She already has muscle relaxers at home that she is continuing to use. She was given a one-time shot of Toradol on reports significant alleviation of pain. She was told to continue with NSAIDs at home such as Aleve or ibuprofen. Departure - Departure Disposition: Home, Self Care Clinical Impression: Lumbar strain Instructions: ED Back Care Tips, ED Spasm Back No Trauma Prescriptions: Oxycodone HCl/Acetaminophen [Percocet 5-325 mg Tablet] 1 each PO Q6HR PRN #8 tablet PRN Reason: Pain >8 Comments: Thank you for trusting us with your care. As we discussed there were no acute findings on the x-ray of your lower back. Continue to recover at home moving around frequently to help recover from your lower back strain. Apply 20 minutes of ice 20 minutes of heat and do gentle range of motion and lower back stretches and exercises to help with recovery. Please follow-up with your primary care provider. I am prescribing a short course of narcotic pain medication for you. These are potentially dangerous and addictive medications that should be used carefully. These medications may constipate you. Take an fiaf-ioe-gfpbaez stool softener (docusate) twice daily with plenty of water while taking these medications. If you go 24 hours without a bowel movement, take isqa-oxc-lomgduj miralax, per package instructions. Do not drink or drive while taking these medications. If you received narcotic or sedating medications while in the emergency department, do not drive for 24 hours. Store this medication in a safe, secure place and out of reach of children. It is a violation of federal law to give or sell this medication to another person or to use in a manner other than prescribed. The ED will not refill narcotic prescriptions, including prescriptions lost or stolen. To dispose of unwanted medications: 1. [facility] at [address] in [place] has a medication drop box. They accept prescription medications (in pill form) Wednesday through Wednesday 9:00 a.m. to 5:00 p.m. 2. The [facility] accepts prescription medications (in pill form only) for disposal year round. Call for more information. 3. Contact the [facility] for the next [facility] sponsored prescription drug collection event. , [phone], or [phone]; Note that many narcotic pain relievers also contain Tylenol/acetaminophen. Please ensure that your total dose of acetaminophen from all sources does not exceed 3 g (3000 mg) per day. Discharge Date/Time: 04/08/23 19:35
[2023-04-08] MEDS: KETOROLAC 30 MG/ML VIAL IM STA (17:35)
--- NOTE | 2023-04-08 19:08 | XRAY Report ---
PROCEDURE: Lumbar Spine 2-3V INDICATIONS: lumbar pain TECHNIQUE: 2 views of the lumbar spine were acquired. COMPARISON: None. FINDINGS: Bones: 5 wbh-[id number]-rmmsjrr vertebrae are present. Trace levoconvex curvature. No vertebral body compre ssion fractures. No suspicious bony lesions. Soft tissues: Overlying bowel gas pattern is normal. No suspicious soft tissue calcifications. IMPRESSION: No acute osseous abnormality. If symptoms persist or there is continued clinical concern, further della luation with MRI or CT may be helpful. Reviewed by: Alex Kang MD on 04/08/2023 7:07 PM PST Approved by: Alex Kang MD on 04/08/2023 7:07 PM PST Station ID: [id number]
[2023-04-08 19:34] VITALS: BP 111/72
== END 2023-04-08 19:35 | disposition home or self-care (01) ==
LOC: ED 15:09
DX: S39.012A Strain of muscle, fascia and tendon of lower back, initial encounter (principal); X50.0XXA Overexertion from strenuous movement or load, initial encounter; Y93.89 Activity, other specified; Y92.89 Other specified places as the place of occurrence of the external cause; Y99.0 Civilian activity done for income or pay
CPT/HCPCS: 96372; 99283; 99284